=== PATIENT | male | born 1965 | race Caucasian/White ===

== ENCOUNTER → 2017-02-01 | Outpatient (CLI) | payer OTHER ==
[~2017-02-01] MED LIST: CHOL400T PO; GADAVIST IV PRN; MELO15TA4 PO; MULT-506 PO
--- NOTE | 2017-02-01 14:21 | DIAGNOSTIC IMAGING REPORT ---
BONY ORBITS 3 VIEWS CLINICAL HISTORY: MRI screening. FINDINGS: 3 views of the bony orbits are obtained. No prior studies are available for comparison at the time of dictation. There is no radiodense/metallic foreign body seen in the region of the bony orbits. The bony orbits are intact as visualized. The imaged paranasal sinuses and mastoid there are cells are clear. The visualized calvarium appears intact. IMPRESSION: There is no radiodense/metallic foreign body identified in the region of the bony orbits. Electronically signed by: Pedrito Urrutia M.D. 02/01/2017 2:19 PM Dictated Date/Time: 02/01/2017 2:18 PM
--- NOTE | 2017-02-01 15:22 | DIAGNOSTIC IMAGING REPORT ---
MRI OF THE BRAIN AND IACS WITHOUT A WITH CONTRAST CLINICAL HISTORY: Asymmetric hearing loss COMPARISON STUDY: No previous studies for comparison. TECHNIQUE: MRI of the brain was performed from the vertex to the skull base utilizing various T1 and T2 weighted sequences. Following the IV administration of 7.5 mL of Gadavist contrast, additional enhanced images were obtained. FINDINGS: Sagittal T1, axial diffusion, proton density and T2 weighted axial, coronal FLAIR, and pre and post axial T1-weighted images were acquired. These were supplemented with post gadolinium coronal T1 weighted images. 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 Axial diffusion-weighted images reveal no evidence of acute or subacute infarction. There is no evidence of ventricular dilatation. Proton density T2-weighted and FLAIR images reveal no significant intraparenchymal signal abnormalities. There are no abnormal flow voids. There is no evidence of pathologic enhancement. No cerebellopontine angle masses are visualized. The 7th and 8th nerve complexes appear normal bilaterally. There are inflammatory changes within the paranasal sinuses. IMPRESSION: 1. 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 No cerebellopontine angle masses identified. No MRI evidence of an acoustic neuroma 3. No evidence of acute or subacute infarction. Electronically signed by: Keshav Peterson M.D. 02/01/2017 3:20 PM Dictated Date/Time: 02/01/2017 3:17 PM
== END | disposition home or self-care (01) ==
LOC: C.MRIBC 13:53
DX: H90.41 Sensorineural hearing loss, unilateral, right ear, with unrestricted hearing on the contralateral side (principal); Z13.5 Encounter for screening for eye and ear disorders

== ENCOUNTER 2023-05-01 21:47 | Inpatient (IN) ==
[~2023-05-01 21:47] MED LIST changes: -CHOL400T PO; +ETOMIDATE 2 MG/ML 20 ML VIAL IV ONE; -GADAVIST IV PRN; -MELO15TA4 PO; -MULT-506 PO; +SUCCINYLCHOLINE CHLORIDE 20 MG/ML 10 ML VIAL IV ONE
[2023-05-01] MEDS ORDERED: SODIUM CHLORIDE 0.9% 1000ML 1,000 ML IV ONE (22:10)
--- NOTE | 2023-05-01 22:18 | Emergency Department Note ---
History of Present Illness General Chief complaint: Overdose (Intentional) Stated complaint: AMITRIPTYLINE OVERDOSE Time Seen by Provider: 05/01/23 21:59 History of Present Illness 57-year-old male presents emergency department with complaints of reportedly had taken fifteen 100 mg amitriptyline approximately 1 hour prior to arrival as a suicide attempt. Patient reportedly also had a gun to his face but did not pull the trigger. Patient states that he took 15 pills prior to arrival. EMS states that when they counted the pill bottle that was the correct amount left. There is no further history available to me from the patient due to alteration mental status Home Medications Medication Instructions Recorded Confirmed Type meloxicam 15 mg tablet 15 mg PO QAM 08/07/22 05/01/23 History ipratropium bromide 21 mcg (0.03 2 spray intranasal QAM #90 mL 09/21/22 05/01/23 Rx %) nasal spray pantoprazole 40 mg tablet,delayed 40 mg PO DAILY #90 tabs 04/04/23 05/01/23 Rx release amitriptyline 100 mg tablet 100 mg PO DAILY #90 tabs 04/16/23 05/01/23 Rx Allergies Allergy/AdvReac Type Severity Reaction Status Date / Time No Known Allergies Allergy Verified 02/13/23 14:21 Past Med/Surg History Medical History Cervical radiculopathy Cervical spinal stenosis (08/04/14) GERD (gastroesophageal reflux disease) Globus sensation Swallowing difficulty Surgical History History of arthroscopy of left knee History of arthroscopy of left shoulder History of arthroscopy of right knee History of colonoscopy History of lumbar spinal fusion History of wisdom tooth extraction S/P cervical spinal fusion normal ROM Family History Father Prostate cancer Other No family history of adverse response to anesthesia Denies family history of Ovarian cancer Diabetes Myocardial infarction Breast cancer Lung cancer Colorectal cancer Stroke Social History Smoking Status: Former smoker Second Hand Exposure: No; Do You Dip or Chew Tobacco: No; Hx Alcohol Use: Yes Alcohol type: beer Alcohol Intake Frequency: 4 or More x per/Week Hx Substance Use: No Preferred Language: [place]an Communication Ability: Effective Visual Impairment: No Limitations Hearing Ability: Normal Manager Creative Required: No Beliefs That Will Affect Care: None marital status: Current Living Situation: Spouse current occupational status: employed current occupation: Systems Admin How many Children do You have: 2 Feels Safe at Home: Yes Childhood Exposure to Second-Hand Smoke: No caffeine: Yes Dental Care, Regularly: Yes Physical Activity Frequency: Does not Exercise Seatbelt Use: always Sunscreen Use: No Assistive Devices: None Review of Systems Unobtainable due to reduced consciousness Physical Exam Vital Signs Vital Signs - 24 hr 05/01/23 21:57 05/01/23 21:48 05/01/23 21:48 Temperature 36.8 C Temperature Source Oral Pulse Rate 132 H 133 H Pulse Rate from SpO2 Sensor Pulse Rhythm Regular Pulse Strength Normal Respiratory Rate 20 Respiratory Effort / Characteristics Non-Labored Spontaneous Non-Labored Spontaneous Respiratory Depth Normal Normal Respiratory Pattern Regular Regular Blood Pressure 147/101 H Blood Pressure Mean 116 Blood Pressure Position Lying Pulse Oximetry 96 Oxygen Delivery Method Room Air Oxygen Flow Rate Fraction of Inspired Oxygen SaO2/FiO2 Ratio Sepsis Recent Fever Within 48 Hours No Sepsis New/Unexplained Change in Mental Status N/A Sepsis Action Taken by Nursing No Action Required End-Tidal CO2 05/01/23 21:50 05/01/23 22:47 05/01/23 23:14 Temperature Temperature Source Pulse Rate 115 H Pulse Rate from SpO2 Sensor Pulse Rhythm Pulse Strength Respiratory Rate 22 Respiratory Effort / Characteristics Respiratory Depth Respiratory Pattern Blood Pressure Blood Pressure Mean Blood Pressure Position Pulse Oximetry 97 98 99 Oxygen Delivery Method Room Air Mechanical Vent Oxygen Flow Rate 0 Fraction of Inspired Oxygen 40 40 SaO2/FiO2 Ratio 247 Sepsis Recent Fever Within 48 Hours Sepsis New/Unexplained Change in Mental Status Sepsis Action Taken by Nursing End-Tidal CO2 34 05/01/23 22:20 05/01/23 22:52 05/01/23 22:52 Temperature Temperature Source Pulse Rate 128 H 107 H Pulse Rate from SpO2 Sensor 127 H 108 H Pulse Rhythm Pulse Strength Respiratory Rate 28 H 14 Respiratory Effort / Characteristics Respiratory Depth Respiratory Pattern Blood Pressure 175/110 H Blood Pressure Mean 131 Blood Pressure Position Pulse Oximetry 95 99 Oxygen Delivery Method Mechanical Vent Oxygen Flow Rate Fraction of Inspired Oxygen 40 SaO2/FiO2 Ratio Sepsis Recent Fever Within 48 Hours Sepsis New/Unexplained Change in Mental Status Sepsis Action Taken by Nursing End-Tidal CO2 05/01/23 22:55 05/01/23 22:55 05/01/23 23:00 Temperature Temperature Source Pulse Rate 118 H Pulse Rate from SpO2 Sensor 118 H Pulse Rhythm Pulse Strength Respiratory Rate 20 Respiratory Effort / Characteristics Respiratory Depth Respiratory Pattern Blood Pressure 173/128 H 169/106 H Blood Pressure Mean 143 127 Blood Pressure Position Pulse Oximetry 99 Oxygen Delivery Method Mechanical Vent Oxygen Flow Rate Fraction of Inspired Oxygen 40 SaO2/FiO2 Ratio Sepsis Recent Fever Within 48 Hours Sepsis New/Unexplained Change in Mental Status Sepsis Action Taken by Nursing End-Tidal CO2 36 05/01/23 23:00 05/01/23 23:06 05/01/23 23:06 Temperature Temperature Source Pulse Rate 111 H 118 H Pulse Rate from SpO2 Sensor 112 H 118 H Pulse Rhythm Pulse Strength Respiratory Rate 18 24 Respiratory Effort / Characteristics Respiratory Depth Respiratory Pattern Blood Pressure 134/102 H Blood Pressure Mean 112 Blood Pressure Position Pulse Oximetry 99 100 Oxygen Delivery Method Mechanical Vent Mechanical Vent Oxygen Flow Rate Fraction of Inspired Oxygen 40 40 SaO2/FiO2 Ratio Sepsis Recent Fever Within 48 Hours Sepsis New/Unexplained Change in Mental Status Sepsis Action Taken by Nursing End-Tidal CO2 37 36 05/01/23 23:10 05/01/23 23:14 05/01/23 23:14 Temperature Temperature Source Pulse Rate 122 H 124 H Pulse Rate from SpO2 Sensor 122 H 125 H Pulse Rhythm Pulse Strength Respiratory Rate 23 24 Respiratory Effort / Characteristics Respiratory Depth Respiratory Pattern Blood Pressure 178/107 H Blood Pressure Mean 130 Blood Pressure Position Pulse Oximetry 99 100 Oxygen Delivery Method Mechanical Vent Mechanical Vent Oxygen Flow Rate Fraction of Inspired Oxygen 40 40 SaO2/FiO2 Ratio Sepsis Recent Fever Within 48 Hours Sepsis New/Unexplained Change in Mental Status Sepsis Action Taken by Nursing End-Tidal CO2 38 32 05/01/23 23:16 05/01/23 23:16 05/01/23 23:20 Temperature Temperature Source Pulse Rate 123 H Pulse Rate from SpO2 Sensor 123 H Pulse Rhythm Pulse Strength Respiratory Rate 22 Respiratory Effort / Characteristics Respiratory Depth Respiratory Pattern Blood Pressure 155/95 H 151/92 H Blood Pressure Mean 115 111 Blood Pressure Position Pulse Oximetry 100 Oxygen Delivery Method Mechanical Vent Oxygen Flow Rate Fraction of Inspired Oxygen 40 SaO2/FiO2 Ratio Sepsis Recent Fever Within 48 Hours Sepsis New/Unexplained Change in Mental Status Sepsis Action Taken by Nursing End-Tidal CO2 34 05/01/23 23:20 05/01/23 23:25 05/01/23 23:25 Temperature Temperature Source Pulse Rate 127 H 132 H Pulse Rate from SpO2 Sensor 126 H 130 H Pulse Rhythm Pulse Strength Respiratory Rate 30 H 21 Respiratory Effort / Characteristics Respiratory Depth Respiratory Pattern Blood Pressure 170/103 H Blood Pressure Mean 125 Blood Pressure Position Pulse Oximetry 99 98 Oxygen Delivery Method Mechanical Vent Mechanical Vent Oxygen Flow Rate Fraction of Inspired Oxygen 40 40 SaO2/FiO2 Ratio Sepsis Recent Fever Within 48 Hours Sepsis New/Unexplained Change in Mental Status Sepsis Action Taken by Nursing End-Tidal CO2 38 35 05/01/23 23:30 05/01/23 23:31 05/01/23 23:31 Temperature Temperature Source Pulse Rate 125 H 126 H Pulse Rate from SpO2 Sensor 126 H Pulse Rhythm Pulse Strength Respiratory Rate 23 21 Respiratory Effort / Characteristics Respiratory Depth Respiratory Pattern Blood Pressure 161/94 H Blood Pressure Mean 116 Blood Pressure Position Pulse Oximetry 100 Oxygen Delivery Method Mechanical Vent Oxygen Flow Rate Fraction of Inspired Oxygen 40 SaO2/FiO2 Ratio Sepsis Recent Fever Within 48 Hours Sepsis New/Unexplained Change in Mental Status Sepsis Action Taken by Nursing End-Tidal CO2 35 36 05/01/23 23:35 05/01/23 23:35 05/01/23 23:40 Temperature Temperature Source Pulse Rate 129 H 131 H Pulse Rate from SpO2 Sensor 126 H 130 H Pulse Rhythm Pulse Strength Respiratory Rate 25 H 20 Respiratory Effort / Characteristics Respiratory Depth Respiratory Pattern Blood Pressure 152/89 H Blood Pressure Mean 110 Blood Pressure Position Pulse Oximetry 98 98 Oxygen Delivery Method Mechanical Vent Mechanical Vent Oxygen Flow Rate Fraction of Inspired Oxygen 40 40 SaO2/FiO2 Ratio Sepsis Recent Fever Within 48 Hours Sepsis New/Unexplained Change in Mental Status Sepsis Action Taken by Nursing End-Tidal CO2 36 32 05/01/23 23:46 05/01/23 23:46 05/01/23 23:50 Temperature Temperature Source Pulse Rate 133 H 135 H Pulse Rate from SpO2 Sensor 133 H 132 H Pulse Rhythm Pulse Strength Respiratory Rate 26 H 28 H Respiratory Effort / Characteristics Respiratory Depth Respiratory Pattern Blood Pressure 148/92 H Blood Pressure Mean 110 Blood Pressure Position Pulse Oximetry 100 100 Oxygen Delivery Method Mechanical Vent Mechanical Vent Oxygen Flow Rate Fraction of Inspired Oxygen 40 40 SaO2/FiO2 Ratio Sepsis Recent Fever Within 48 Hours Sepsis New/Unexplained Change in Mental Status Sepsis Action Taken by Nursing End-Tidal CO2 34 33 05/01/23 23:51 05/01/23 23:51 Temperature Temperature Source Pulse Rate 134 H Pulse Rate from SpO2 Sensor 134 H Pulse Rhythm Pulse Strength Respiratory Rate 29 H Respiratory Effort / Characteristics Respiratory Depth Respiratory Pattern Blood Pressure 176/79 H Blood Pressure Mean 111 Blood Pressure Position Pulse Oximetry 100 Oxygen Delivery Method Mechanical Vent Oxygen Flow Rate Fraction of Inspired Oxygen 40 SaO2/FiO2 Ratio Sepsis Recent Fever Within 48 Hours Sepsis New/Unexplained Change in Mental Status Sepsis Action Taken by Nursing End-Tidal CO2 34 GENERAL: Patient is awake alert in no acute distress patient is resting comfortably and showing no signs of anxiety EYES: The conjunctivae are clear. The pupils are round and reactive. EARS, NOSE, MOUTH AND THROAT: The nose is without any evidence of any deformity. Mucous membranes are moist. Tongue is midline. NECK: The neck is nontender and supple. RESPIRATORY: Normal respiratory effort is noted there is no evidence of wheezing rhonchi or rales CARDIOVASCULAR: Tachycardic rate and rhythm noted there no murmurs rubs or gallops normal S1 normal S2. GASTROINTESTINAL: The abdomen is soft. Abdomen is nontender. BACK: Full range of motion MUSCULOSKELETAL/EXTREMITIES: There is no evidence of gross deformity full range of motion is noted in the hips and shoulders. SKIN: There is no obvious evidence of any rash. There are no petechiae, pallor or cyanosis noted. NEUROLOGIC: Patient is awake alert, mild dysarthria, but follows commands Psych reportedly suicidal ideation with intentional overdose Procedures Intubation Time out performed: Yes sedative: Etomidate Mg Given: 20 paralytic: Succinylcholine Mg Given: 120 Laryngoscope: Kristi ET Tube Size: 7.5 ET Tube Uncuffed: Yes Tube Secured Depth (cm): 22 Tube Secured Location: teeth Tube Placement Confirmation: visualized tube passing through cords, equal breath sounds bilaterally, no breath sounds over epigastrium and confirmation by capnometry Patient Tolerated Procedure: well Intubation Complications: none Additional Comments: Patient was intubated for severe agitation and alteration mental status Course Reevaluation(s) Reevaluation #1: Patient became extremely agitated was combative against the staff. Patient was placed in soft restraints with security at bedside. Patient was transferred from to [facility] for emergent intubation Time: 22:51 Reevaluation #2: Patient is currently intubated vital signs are stable. Patient is awaiting ICU admission Time: 00:12 Consultations Consultation #1: Case was discussed with the [facility] in [place] at 2212. They recommend repeat EKG every 4 hours give sodium bicarb if the QRS is greater than 120, give benzodiazepines for agitation and seizure activity, admit Time: :17 Consultation #2: Case was discussed with her family service caseworker for 302 petition Time: :17 Consultation #3: Case was discussed with the [facility] hospitalist for admission to the ICU Time: 23:09 Administered Medications Propofol (Diprivan) 1,000 mg in 100 mls @ 9.504 mls/hr IV .[id number] [facility]; Protocol Stop: 05/04/23 23:29 Last Admin: 05/01/23 22:53 Dose: 20 mcg/kg/min, 9.5 mls/hr Documented By: CONTROL SYSTEM MANAGER Co-signed By: TONIA Discontinued Medications Sodium Chloride (Nss 1000ml) 1,000 mls @ 999 mls/hr IV .[id number] ONE Stop: 05/01/23 23:10 Last Infusion: 05/01/23 23:00 Dose: 0 mls/hr Documented By: CONTROL SYSTEM MANAGER Admin: 05/01/23 22:18 Dose: 999 mls/hr Documented By: CONTROL SYSTEM MANAGER Miscellaneous (Rapid Sequence Induction Bag) Confirm Administered Dose 1 each N/A .STK-MED ONE Stop: 05/01/23 22:42 Last Admin: 05/01/23 22:45 Dose: 1 each Documented By: CONTROL SYSTEM MANAGER Propofol (Propofol Iv Emulsion 10 Mg/Ml 100 Ml Vial) Confirm Administered Dose 1,000 mg IV .STK-MED ONE Stop: 05/01/23 22:50 Last Admin: 05/01/23 22:53 Dose: 1,000 mg Documented By: CONTROL SYSTEM MANAGER Co-signed By: TONIA Critical Care Time Critical Care Time: Yes Total Critical Care Time: 60 I have personally spent greater than 60 minutes of critical care time in the direct management of this patient. This includes bedside care, interpretation of diagnostic studies, and testing, discussion with consultants, patient, and family members, and other required patient management activities. These minutes are in excess of all separately billable procedures. Medical Decision Making Medical Records Attestation: I reviewed the patient's medical records. Home Medications Current Medication List: was personally reviewed by me Laboratory Data Attestation: I reviewed the patient's lab results. 05/01/23 22:00 05/01/23 22:00 Lab Results 05/01/23 05/01/2323 Range/Units 21:58 22:00 22:00 WBC 9.99 (4.8-10.8) K/ul RBC 4.81 (4.70-6.10) M/uL Hgb 14.5 (14.0-18.0) g/dl POC Hgb (14.0-18.0) g/dl Hct 41.7 L (42.0-52.0) % POC Hct (42-52) % MCV 86.7 (80.0-100.0) fL MCH 30.1 (25.0-34.0) pg MCHC 34.8 (32.0-36.0) g/dL RDW Std Deviation 45.1 (36.4-46.3) fL RDW Coeff of Chrissy 14.3 (11.5-14.5) % Plt Count 241 (130-400) K/uL MPV 9.1 L (9.4-12.4) fL Immature Gran % (Auto) 0.6 % Neut % (Auto) 82.0 % Lymph % (Auto) 11.0 % Wilkes % (Auto) 5.8 % Eos % (Auto) 0.4 % Baso % (Auto) 0.2 % Neut # (Auto) 8.19 H (1.40-6.50) K/uL Lymph # (Auto) 1.10 L (1.2-3.4) K/uL Wilkes # (Auto) 0.58 (0.11-0.59) K/uL Eos # (Auto) 0.04 (0-0.50) K/uL Baso # (Auto) 0.02 (0-0.2) K/uL Immature Gran # (Auto) 0.06 (0.01-0.20) K/uL PT 11.3 (9.0-12.0) Seconds INR 1.0 (0.9-1.1) POC pH (7.35-7.45) POC pCO2 (35-46) mmHg POC pO2 (80-95) mmHg POC HCO3 (19-24) niyah/L POC Total CO2 (24-31) mmol/L POC Base Excess (-9-1.8) niyah/L POC ABG O2 Sat (90-95) % POC Sodium (135-144) mmol/L Sodium (136-145) mmol/L POC Potassium (3.3-5.0) mmol/L Potassium (3.5-5.1) mmol/L Chloride (98-107) mmol/L Carbon Dioxide (21-32) mmol/L Anion Gap (3-11) BUN (6-23) mg/dl Creatinine (0.6-1.4) mg/dl Est Cr Clr Drug Dosing ml/min Est GFR ( Amer) ml/min Est GFR (Non-Af Amer) ml/min BUN/Creatinine Ratio (10-20) Glucose (70-99(Fasting)) mg/dl POC Glucose 118 H (70-99) mg/dl Calcium (8.6-10.3) mg/dl Magnesium (1.7-2.4) mg/dl Total Bilirubin (0.2-1.0) mg/dl AST (13-39) U/L ALT (7-52) U/L Alkaline Phosphatase (34-104) U/L Troponin I High Sens (0-20) pg/ml Total Protein (6.0-8.3) gm/dl Albumin (3.4-5.0) gm/dl Globulin (2.5-4.0) gm/dl Albumin/Globulin Ratio (0.9-2) Salicylates (3.0-30) mg/dl Urine Opiates Screen (Neg) Ur Methadone, Qual (Neg) Acetaminophen (10-30) ug/ml Urine Barbiturates (Neg) Ur Phencyclidine (PCP) (Neg) U Amphetamin/Meth Scrn (Neg) MDMA (Ecstasy) Screen (Neg) U Benzodiazepines Scrn (Neg) Ur Cocaine Metabolite (Neg) U Marijuana (THC) Screen (Neg) Ethyl Alcohol mg/dL (<10.0) mg/dl SARS-CoV-2, RNA, NAAT (NEGATIVE) 05/01/23 05/01/23 05/01/23 Range/Units 22:00 22:00 22:00 WBC (4.8-10.8) K/ul RBC (4.70-6.10) M/uL Hgb (14.0-18.0) g/dl POC Hgb (14.0-18.0) g/dl Hct (42.0-52.0) % POC Hct (42-52) % MCV (80.0-100.0) fL MCH (25.0-34.0) pg MCHC (32.0-36.0) g/dL RDW Std Deviation (36.4-46.3) fL RDW Coeff of Chrissy (11.5-14.5) % Plt Count (130-400) K/uL MPV (9.4-12.4) fL Immature Gran % (Auto) % Neut % (Auto) % Lymph % (Auto) % Wilkes % (Auto) % Eos % (Auto) % Baso % (Auto) % Neut # (Auto) (1.40-6.50) K/uL Lymph # (Auto) (1.2-3.4) K/uL Wilkes # (Auto) (0.11-0.59) K/uL Eos # (Auto) (0-0.50) K/uL Baso # (Auto) (0-0.2) K/uL Immature Gran # (Auto) (0.01-0.20) K/uL PT (9.0-12.0) Seconds INR (0.9-1.1) POC pH (7.35-7.45) POC pCO2 (35-46) mmHg POC pO2 (80-95) mmHg POC HCO3 (19-24) niyah/L POC Total CO2 (24-31) mmol/L POC Base Excess (-9-1.8) niyah/L POC ABG O2 Sat (90-95) % POC Sodium (135-144) mmol/L Sodium 141 (136-145) mmol/L POC Potassium (3.3-5.0) mmol/L Potassium 3.4 L (3.5-5.1) mmol/L Chloride 107 (98-107) mmol/L Carbon Dioxide 23 (21-32) mmol/L Anion Gap 11 (3-11) BUN 22 (6-23) mg/dl Creatinine 1.28 (0.6-1.4) mg/dl Est Cr Clr Drug Dosing 65.0 ml/min Est GFR ( Amer) 71.0 ml/min Est GFR (Non-Af Amer) 61.3 ml/min BUN/Creatinine Ratio 17.2 (10-20) Glucose 115 H (70-99(Fasting)) mg/dl POC Glucose (70-99) mg/dl Calcium 9.8 (8.6-10.3) mg/dl Magnesium 2.0 (1.7-2.4) mg/dl Total Bilirubin 0.5 (0.2-1.0) mg/dl AST 29 (13-39) U/L ALT 34 (7-52) U/L Alkaline Phosphatase 62 (34-104) U/L Troponin I High Sens 3.9 (0-20) pg/ml Total Protein 7.1 (6.0-8.3) gm/dl Albumin 4.8 (3.4-5.0) gm/dl Globulin 2.3 L (2.5-4.0) gm/dl Albumin/Globulin Ratio 2.1 H (0.9-2) Salicylates < 3.0 L (3.0-30) mg/dl Urine Opiates Screen (Neg) Ur Methadone, Qual (Neg) Acetaminophen < 3 L (10-30) ug/ml Urine Barbiturates (Neg) Ur Phencyclidine (PCP) (Neg) U Amphetamin/Meth Scrn (Neg) MDMA (Ecstasy) Screen (Neg) U Benzodiazepines Scrn (Neg) Ur Cocaine Metabolite (Neg) U Marijuana (THC) Screen (Neg) Ethyl Alcohol mg/dL < 10.0 (<10.0) mg/dl SARS-CoV-2, RNA, NAAT (NEGATIVE) 05/01/23 05/01/23 05/01/23 Range/Units 23:05 23:23 Unknown WBC (4.8-10.8) K/ul RBC (4.70-6.10) M/uL Hgb (14.0-18.0) g/dl POC Hgb 10.9 L (14.0-18.0) g/dl Hct (42.0-52.0) % POC Hct 32 L (42-52) % MCV (80.0-100.0) fL MCH (25.0-34.0) pg MCHC (32.0-36.0) g/dL RDW Std Deviation (36.4-46.3) fL RDW Coeff of Chrissy (11.5-14.5) % Plt Count (130-400) K/uL MPV (9.4-12.4) fL Immature Gran % (Auto) % Neut % (Auto) % Lymph % (Auto) % Wilkes % (Auto) % Eos % (Auto) % Baso % (Auto) % Neut # (Auto) (1.40-6.50) K/uL Lymph # (Auto) (1.2-3.4) K/uL Wilkes # (Auto) (0.11-0.59) K/uL Eos # (Auto) (0-0.50) K/uL Baso # (Auto) (0-0.2) K/uL Immature Gran # (Auto) (0.01-0.20) K/uL PT (9.0-12.0) Seconds INR (0.9-1.1) POC pH 7.35 (7.35-7.45) POC pCO2 40 (35-46) mmHg POC pO2 61 L (80-95) mmHg POC HCO3 22 (19-24) niyah/L POC Total CO2 23 L (24-31) mmol/L POC Base Excess -4.0 (-9-1.8) niyah/L POC ABG O2 Sat 90.0 (90-95) % POC Sodium 141 (135-144) mmol/L Sodium (136-145) mmol/L POC Potassium 3.5 (3.3-5.0) mmol/L Potassium (3.5-5.1) mmol/L Chloride (98-107) mmol/L Carbon Dioxide (21-32) mmol/L Anion Gap (3-11) BUN (6-23) mg/dl Creatinine (0.6-1.4) mg/dl Est Cr Clr Drug Dosing ml/min Est GFR ( Amer) ml/min Est GFR (Non-Af Amer) ml/min BUN/Creatinine Ratio (10-20) Glucose (70-99(Fasting)) mg/dl POC Glucose (70-99) mg/dl Calcium (8.6-10.3) mg/dl Magnesium (1.7-2.4) mg/dl Total Bilirubin (0.2-1.0) mg/dl AST (13-39) U/L ALT (7-52) U/L Alkaline Phosphatase (34-104) U/L Troponin I High Sens (0-20) pg/ml Total Protein (6.0-8.3) gm/dl Albumin (3.4-5.0) gm/dl Globulin (2.5-4.0) gm/dl Albumin/Globulin Ratio (0.9-2) Salicylates (3.0-30) mg/dl Urine Opiates Screen Neg (Neg) Ur Methadone, Qual Neg (Neg) Acetaminophen (10-30) ug/ml Urine Barbiturates Neg (Neg) Ur Phencyclidine (PCP) Neg (Neg) U Amphetamin/Meth Scrn Neg (Neg) MDMA (Ecstasy) Screen Neg (Neg) U Benzodiazepines Scrn Neg (Neg) Ur Cocaine Metabolite Neg (Neg) U Marijuana (THC) Screen Pos H (Neg) Ethyl Alcohol mg/dL (<10.0) mg/dl SARS-CoV-2, RNA, NAAT NEGATIVE (NEGATIVE) Imaging Data Attestation: I personally reviewed and interpreted this imaging study as follows: ECG Data Attestation: I personally reviewed and interpreted this ECG as follows: Additional Comments: EKG interpreted by me sinus tachycardia rate of 133 is 100 QTc is [address]-T change Repeat EKG at 2250, sinus tachycardia rate of 105 QRS is 114 the QTc is 481 and there is no obvious ST segment elevation or depression Telemetry was ordered by me, interpreted as sinus tachycardia rate of 125 MDM Narrative Medical decision making differential diagnosis includes intentional TCA overdose, suicidal ideation, metabolic derangement, cardiac dysrhythmia, polysubstance abuse Plan is to check labs, EKG, give IV fluids, monitor due to TCA overdose Impression & Plan TCA (tricyclic antidepressant) overdose of undetermined intent, Altered mental status, Suicide attempt by multiple drug overdose Discharge Plan Visit Data Chief Complaint: Overdose (Intentional) Stated Complaint: AMITRIPTYLINE OVERDOSE ED Provider: Ry Marquez Discharge Problem: TCA (tricyclic antidepressant) overdose of undetermined intent, Altered mental status, Suicide attempt by multiple drug overdose Patient Disposition: Admitted As Inpatient Forms Stand Alone Forms: [facility], Suicide Prevention Resources Prescriptions Prescriptions: No Action ipratropium bromide 21 mcg (0.03 %) spray,non-aerosol 2 spray intranasal QAM Qty: 90 2RF Rx Instructions: administer into each nostril pantoprazole 40 mg tablet,delayed release (DR/EC) 40 mg PO DAILY Qty: 90 0RF Rx Instructions: 1 tab 30-min prior to 1st meal. amitriptyline 100 mg tablet 100 mg PO DAILY Qty: 90 3RF Rx Instructions: filled 04/16/23 for 30 days meloxicam 15 mg Tablet 15 mg PO QAM Rx Instructions: filled 04/05/23 for 30 days Referrals Referrals: Kun Perla DO [Primary Care Provider] -
[2023-05-01 22:38] LABS: Basophils # (auto) 0.02 K/uL (0-0.2); Basophils % (auto) 0.2 %; Eosinophils # (auto) 0.04 K/uL (0-0.50); Eosinophils % (auto) 0.4 %; Hematocrit (blood only) 41.7 % (42.0-52.0); Hemoglobin 14.5 g/dl (14.0-18.0); Immature Granulocytes # (auto) 0.06 K/uL (0.01-0.20); Immature Granulocytes % (auto) 0.6 %; Mean Corpuscular Hemoglobin 30.1 pg (25.0-34.0); Mean Corpuscular Hgb Conc 34.8 g/dL (32.0-36.0); Mean Corpuscular Volume 86.7 fL (80.0-100.0); Mean Platelet Volume 9.1 fL (9.4-12.4); Monocytes # (auto) 0.58 K/uL (0.11-0.59); Monocytes % (auto) 5.8 %; Neutrophils # (auto) 8.19 K/uL (1.40-6.50); Platelet Count 241 K/uL (130-400); RDW Coefficient of Variation 14.3 % (11.5-14.5); RDW Standard Deviation 45.1 fL (36.4-46.3); Red Blood Count 4.81 M/uL (4.70-6.10); White Blood Count 9.99 K/ul (4.8-10.8)
[2023-05-01] MEDS ORDERED: RAPID SEQUENCE INDUCTION BAG ONE (22:41)
[2023-05-01 22:49] LABS: Acetaminophen < 3 ug/ml (10-30); Salicylate < 3.0 mg/dl (3.0-30)
[2023-05-01] MEDS ORDERED: PROPOFOL IV EMULSION 10 MG/ML 100 ML VIAL IV ONE (22:49)
[2023-05-01] MEDS: propofoL 1,000 MG/100 ML VIAL IV SCH (22:53)
[2023-05-01 22:56] LABS: Albumin Globulin Ratio 2.1 (0.9-2); Albumin Level 4.8 gm/dl (3.4-5.0); BUN Creatinine Ratio 17.2 (10-20); Bilirubin,Total 0.5 mg/dl (0.2-1.0); Calcium 9.8 mg/dl (8.6-10.3); Est GFR (Non-African American) 61.3 ml/min; Globulin 2.3 gm/dl (2.5-4.0); Potassium 3.4 mmol/L (3.5-5.1); Total Protein 7.1 gm/dl (6.0-8.3)
[2023-05-01 23:01] LABS: Troponin I High Sensitivity 3.9 pg/ml (0-20)
[2023-05-01 23:04] LABS: Prothrombin Time 11.3 Seconds (9.0-12.0)
[2023-05-01] MEDS ORDERED: PROPOFOL BOLUS FROM BAG IV PRN (23:23)
[2023-05-01] MEDS ORDERED: STAT IV Infusion **Titration per Protocol STA (23:23)
[2023-05-01 23:39] LABS: iSTAT Arterial Blood Gas HCO3 22 meg/L (19-24); iSTAT Arterial Blood Gas pCO2 40 mmHg (35-46); iSTAT Arterial Blood Gas pH 7.35 (7.35-7.45); iSTAT Arterial Blood Gas pO2 61 mmHg (80-95); iSTAT Carbon Dioxide 23 mmol/L (24-31); iSTAT Hematocrit 32 % (42-52); iSTAT Hemoglobin 10.9 g/dl (14.0-18.0); iSTAT Potassium 3.5 mmol/L (3.3-5.0); iSTAT Sodium 141 mmol/L (135-144)
--- NOTE | 2023-05-01 23:43 | History & Physical Report ---
Date of Service May 01, 2023 Assessment & Plan (1) Intentional overdose of tricyclic antidepressant: (2) Altered mental status: (3) Suicide attempt by multiple drug overdose: (4) GERD (gastroesophageal reflux disease): (5) Depression: (6) Endotracheally intubated: Plan Intentional overdose of tricyclic antidepressants/suicide attempt/agitation/intubated for airway protection- Admission to the ICU Consult pressure welder team for management Follow serial CBC with differential, BMP, magnesium, LFTs, phosphorus and ABG Patient reports taking fifteen 100 mg amitriptyline tablets, which was verified by EMS with a pill count Poison control advises EKG every 4 hours, with administration of sodium bicarbonate if QRS becomes greater than 120 Monitor in ED with no ectopy and normal QRS Continue propofol for sedation GERD- Change pantoprazole from 40 mg orally daily to IV Mild dehydration/hypokalemia- Placed on NSS + KCl 20 mEq at 100 mils per hour DVT prophylaxis SCDs plus Lovenox 1 mg/kg subcu daily History of Present Illness Chief Complaint: The patient presented to the emergency department reporting that he had taken 15 of his 100 mg amitriptyline pills about 1 hour prior to arrival as an i ntentional overdose and suicide attempt. Primary Care Provider: Kun Perla DO The patient is a 57-year-old male with a past medical history including suicide attempt by multiple drug overdose, right shoulder impingement syndrome, history of lumbar spine sacral spine surgery, history of arthroscopic left shoulder surgery, cervical spine stenosis and radiculopathy, depression, globus sensation, swallowing difficulty and GERD. He presented to the emergency department stating that he had taken 15 of his 100 mg amitriptyline pills about 1 hour prior to arrival in a suicide attempt. He was initially conversant with the ED, however, he became agitated, and was intubated while in the ED. He remained intubated and sedated during my complete assessment, and his HPI and ROS are obtained by record review and discussion with emergency department staff. His case was discussed with ICU staff, and arranges were made for patient to be admitted to the ICU Allergies Allergy/AdvReac Type Severity Reaction Status Date / Time No Known Allergies Allergy Verified 02/13/23 14:21 Home Medications Medication Instructions Recorded Confirmed Type meloxicam 15 mg tablet 15 mg PO QAM 08/07/22 05/01/23 History ipratropium bromide 21 mcg (0.03 2 spray intranasal QAM #90 mL 09/21/22 05/01/23 Rx %) nasal spray pantoprazole 40 mg tablet,delayed 40 mg PO DAILY #90 tabs 04/04/23 05/01/23 Rx release amitriptyline 100 mg tablet 100 mg PO DAILY #90 tabs 04/16/23 05/01/23 Rx Past Med/Surg History Medical History (Updated 05/02/23 @ 05:04 by Srinivasan Rodriges MD) Cervical radiculopathy Cervical spinal stenosis (08/04/14) Depression GERD (gastroesophageal reflux disease) Globus sensation Swallowing difficulty Surgical History History of arthroscopy of left knee History of arthroscopy of left shoulder History of arthroscopy of right knee History of colonoscopy History of lumbar spinal fusion History of wisdom tooth extraction S/P cervical spinal fusion normal ROM Family History Father Prostate cancer Other No family history of adverse response to anesthesia Denies family history of Ovarian cancer Diabetes Myocardial infarction Breast cancer Lung cancer Colorectal cancer Stroke Social History Smoking Status: Former smoker Smoking End Date: 5 years ago; Second Hand Exposure: No; Do You Dip or Chew Tobacco: No; Hx Alcohol Use: Yes Alcohol type: beer Alcohol Intake Frequency: 4 or More x per/Week Hx Substance Use: Yes Last Used Substance: Unknown Preferred Language: [place] Communication Ability: Impaired Communication Ability Comment: Patient is intubated and sedated Visual Impairment: No Limitations Hearing Ability: Normal Executive Manager Required: No Beliefs That Will Affect Care: None marital status: Current Living Situation: Spouse and Family current occupational status: employed current occupation: Animal Tech How many Children do You have: 2 Other Information That Helps Us Care for You: No Feels Safe at Home: Yes Childhood Exposure to Second-Hand Smoke: No caffeine: Yes Dental Care, Regularly: Yes Physical Activity Frequency: Does not Exercise Seatbelt Use: always Sunscreen Use: No Assistive Devices: None Review of Systems Review of Systems: Unable to perform ROS due to intubated and sedated status Physical Exam Physical Exam: The patient is sedated and intubated, well developed and well nourished HEENT--PERRL, EOMI, mucous membranes and oropharynx dry. Neck--supple. No JVD. No bruits. Thyroid normal, trachea midline, no adenopathy. Heart--normal S1 and S2. No murmurs, rubs or gallops. Lungs--few coarse breath sounds bilaterally. Abdomen--normal bowel sounds and soft. Nondistended Extremities--no cyanosis or clubbing. No edema. There are good distal pulses b/l. Dermatologic--no acute findings Neurologic--limited exam, sedated sedated on propofol Rheumatologic--limited exam Psychiatric--reportedly became agitated and aggressive towards staff, and then was sedated and intubated Results & Data Results & Data Vital Signs (Past 12 Hours) Vital Signs Temp Pulse Resp BP Pulse Ox O2 Del Method O2 Flow Rate 05/01/23 23:06 134/102 H 05/01/23 23:06 118 H 24 100 Mechanical Vent 05/01/23 23:00 111 H 18 99 Mechanical Vent 05/01/23 23:00 169/106 H 05/01/23 22:55 173/128 H 05/01/23 22:55 118 H 20 99 Mechanical Vent 05/01/23 22:52 107 H 14 99 Mechanical Vent 05/01/23 22:52 175/110 H 05/01/23 22:20 128 H 28 H 95 05/01/23 23:14 99 Mechanical Vent 05/01/23 22:47 115 H 22 98 05/01/23 21:50 97 Room Air 0 05/01/23 21:48 36.8 C 133 H 20 147/101 H 96 Room Air 05/01/23 21:57 132 H FiO2 05/01/23 23:06 05/01/23 23:06 40 05/01/23 23:00 40 05/01/23 23:00 05/01/23 22:55 05/01/23 22:55 40 05/01/23 22:52 40 05/01/23 22:52 05/01/23 22:20 05/01/23 23:14 40 05/01/23 22:47 40 05/01/23 21:50 05/01/23 21:48 05/01/23 21:57 Laboratory Results Laboratory Results WBC 9.99 K/ul (4.8-10.8) 05/01/23 22:00 RBC 4.81 M/uL (4.70-6.10) 05/01/23 22:00 Hgb 14.5 g/dl (14.0-18.0) 05/01/23 22:00 POC Hgb 10.9 g/dl (14.0-18.0) L 05/01/23 23:23 Hct 41.7 % (42.0-52.0) L 05/01/23 22:00 POC Hct 32 % (42-52) L 05/01/23 23:23 MCV 86.7 fL (80.0-100.0) 05/01/23 22:00 MCH 30.1 pg (25.0-34.0) 05/01/23 22:00 MCHC 34.8 g/dL (32.0-36.0) 05/01/23 22:00 RDW Std Deviation 45.1 fL (36.4-46.3) 05/01/23 22:00 RDW Coeff of Chrissy 14.3 % (11.5-14.5) 05/01/23 22:00 Plt Count 241 K/uL (130-400) 05/01/23 22:00 MPV 9.1 fL (9.4-12.4) L 05/01/23 22:00 Immature Gran % (Auto) 0.6 % 05/01/23 22:00 Neut % (Auto) 82.0 % 05/01/23 22:00 Lymph % (Auto) 11.0 % 05/01/23 22:00 King[place]isher % (Auto) 5.8 % 05/01/23 22:00 Eos % (Auto) 0.4 % 05/01/23 22:00 Baso % (Auto) 0.2 % 05/01/23 22:00 Neut # (Auto) 8.19 K/uL (1.40-6.50) H 05/01/23 22:00 Lymph # (Auto) 1.10 K/uL (1.2-3.4) L 05/01/23 22:00 Kingfisher # (Auto) 0.58 K/uL (0.11-0.59) 05/01/23 22:00 Eos # (Auto) 0.04 K/uL (0-0.50) 05/01/23 22:00 Baso # (Auto) 0.02 K/uL (0-0.2) 05/01/23 22:00 Immature Gran # (Auto) 0.06 K/uL (0.01-0.20) 05/01/23 22:00 PT 11.3 Seconds (9.0-12.0) 05/01/23 22:00 INR 1.0 (0.9-1.1) 05/01/23 22:00 POC pH 7.35 (7.35-7.45) 05/01/23 23:23 POC pCO2 40 mmHg (35-46) 05/01/23 23:23 POC pO2 61 mmHg (80-95) L 05/01/23 23:23 POC HCO3 22 niyah/L (19-24) 05/01/23 23:23 POC Total CO2 23 mmol/L (24-31) L 05/01/23 23:23 POC Base Excess -4.0 niyah/L (-9-1.8) 05/01/23 23:23 POC ABG O2 Sat 90.0 % (90-95) 05/01/23 23:23 POC Sodium 141 mmol/L (135-144) 05/01/23 23:23 Sodium 141 mmol/L (136-145) 05/02/23 02:04 POC Potassium 3.5 mmol/L (3.3-5.0) 05/01/23 23:23 Potassium 4.1 mmol/L (3.5-5.1) D 05/02/23 02:04 Chloride 112 mmol/L (98-107) H 05/02/23 02:04 Carbon Dioxide 22 mmol/L (21-32) 05/02/23 02:04 Anion Gap 7 (3-11) 05/02/23 02:04 BUN 19 mg/dl (6-23) 05/02/23 02:04 Creatinine 1.15 mg/dl (0.6-1.4) 05/02/23 02:04 Est Cr Clr Drug Dosing 72.3 ml/min 05/02/23 02:04 Est GFR ( Amer) 80.9 ml/min 05/02/23 02:04 Est GFR (Non-Af Amer) 69.8 ml/min 05/02/23 02:04 BUN/Creatinine Ratio 16.5 (10-20) 05/02/23 02:04 Glucose 145 mg/dl (70-99(Fasting)) H 05/02/23 02:04 POC Glucose 118 mg/dl (70-99) H 05/01/23 21:58 Calcium 8.2 mg/dl (8.6-10.3) L 05/02/23 02:04 Magnesium 2.0 mg/dl (1.7-2.4) 05/01/23 22:00 Total Bilirubin 0.5 mg/dl (0.2-1.0) 05/01/23 22:00 AST 29 U/L (13-39) 05/01/23 22:00 ALT 34 U/L (7-52) 05/01/23 22:00 Alkaline Phosphatase 62 U/L (34-104) 05/01/23 22:00 Troponin I High Sens 7.4 pg/ml (0-20) 05/02/23 02:04 Total Protein 7.1 gm/dl (6.0-8.3) 05/01/23 22:00 Albumin 4.8 gm/dl (3.4-5.0) 05/01/23 22:00 Globulin 2.3 gm/dl (2.5-4.0) L 05/01/23 22:00 Albumin/Globulin Ratio 2.1 (0.9-2) H 05/01/23 22:00 Salicylates < 3.0 mg/dl (3.0-30) L 05/01/23 22:00 Urine Opiates Screen Neg (Neg) 05/01/23 23:05 Ur Methadone, Qual Neg (Neg) 05/01/23 23:05 Acetaminophen < 3 ug/ml (10-30) L 05/01/23 22:00 Urine Barbiturates Neg (Neg) 05/01/23 23:05 Ur Phencyclidine (PCP) Neg (Neg) 05/01/23 23:05 U Amphetamin/Meth Scrn Neg (Neg) 05/01/23 23:05 MDMA (Ecstasy) Screen Neg (Neg) 05/01/23 23:05 U Benzodiazepines Scrn Neg (Neg) 05/01/23 23:05 Ur Cocaine Metabolite Neg (Neg) 07/18/23 23:05 U Marijuana (THC) Screen Pos (Neg) H 05/01/23 23:05 Ethyl Alcohol mg/dL < 10.0 mg/dl (<10.0) 05/01/23 22:00 SARS-CoV-2, RNA, NAAT NEGATIVE (NEGATIVE) 05/01/23 Unknown Code Status & VTE Plan Code Status Full code VTE Prophylaxis Plan VTE Prophylaxis will be ordered: Yes PG Care Time/CCT Total # of Minutes Spent Total Time Spent with Patient: Total time spent is greater than 50% in coordination of care (as documented) at patient's floor/unit and/or counseling patient: 40 minutes Coding Level of Care Code 97159 INT INP/OBS CARE 3/75MIN Diagnoses Intentional overdose of tricyclic antidepressant T43.012A Altered mental status R41.82 Suicide attempt by multiple drug overdose T50.912A GERD (gastroesophageal reflux disease) K21.9 Depression F32.A Endotracheally intubated Z97.8
[2023-05-02 00:04] LABS: Amphetamines+Metham, Urine Neg (Neg); Barbiturates, Urine Neg (Neg); Benzodiazepine, Urine Neg (Neg); Cocaine, Urine Neg (Neg); MDMA (Ecstacy), Urine Neg (Neg); Methadone, Urine Neg (Neg); Opiate, Urine Neg (Neg); Phencyclidine, Urine Neg (Neg)
[2023-05-02] MEDS ORDERED: ACETAMINOPHEN 1000 MG/100 ML IV IV PRN (01:11)
[2023-05-02] MEDS ORDERED: ALBUT/IPRATROP 3MG/0.5MG NEB 3 ML VIAL INH PRN (01:11)
[2023-05-02] MEDS ORDERED: NSS + 20MEQ KCL 20 MEQ/1,000 ML BAG IV SCH (01:30)
[2023-05-02] MEDS: propofoL 1,000 MG/100 ML VIAL IV SCH ×3 (01:42→07:35)
--- NOTE | 2023-05-02 02:41 | Critical Care Consultation ---
Date of Consultation May 02, 2023 Assessment & Plan (1) Suicide attempt by multiple drug overdose: Reason Critically Ill: 57-year-old male presents to the ICU following intentional drug overdose with amitriptyline. Intubated in the emergency department following altered mental status and combative behavior. Now presents to the ICU mechanically ventilated. Neuro - Intentional drug overdose/suicide attempt Patient reported to have held a gun to his head threatening suicide and then took fifteen 100 mg amitriptyline's from his own prescription. -Was noted to be altered mental status on arrival to the emergency department, And was intubated - Poison control consulted. Recommended every 4 hour EKGs and addition of bicarb if QRS above 120 - UDS positive for marijuana. EtOH negative. Acetaminophen and salicylates negative - Currently no 302 on patient. reportedly refused to sign - does report prior history of suicide attempt and depression with suicidal ideations - Consult psych once medically stable Cardiac - Tachycardia Likely secondary to TCA overdose/Agitation. QTc and QRS within normal limits on EKG. Continuous monitoring on telemetry for now. Hemodynamically stable and troponin negative Respiratory - Mechanically ventilated Currently on AC/VC 16/450/8/30 5% - Chest x-ray Unremarkable - Continuous monitoring on end-tidal CO2 and pulse ox. - Plan to extubate once patient is able to metabolize amitriptyline from overdose GI - N.p.o. GERDPPI RENAL/LYTES - Creatinine within normal limits monitor routine BMPs and replete electrolytes as indicated Continue with IV fluid resuscitation - Foleystrict I's and O ENDO - No history of diabetes or thyroid disease. ICU hyperglycemic protocol HEME - H&H stable, monitor routine CBC ID - No indication for infectious process at this time LINES/IV ACCESS - Peripheral IVs DVT PROPHYLAXIS - SCDs I have personally spent 40 minutes of critical care time in the direct management of this patient. This is a life/limb threatening event. This includes time spent evaluating patient, direct bedside care, chart review, placing orders, interpretation of diagnostic studies, discussion with consultants, patient, and family members, as well as other required patient management activities. This time is exclusive of all separately billable procedures, and teaching time and separate from and in addition to any other critical care service time. Thank you for allowing us to participate in the care of this patient. Please refer to my attending physician's documentation for any further recommendations. (2) Altered mental status: Supervising Physician Co-Signing Physician Notes Patient seen and examined. EMR reviewed. Discussed with bedside critical care nurse. No family available. Discussed on multidisciplinary rounds. The patient's remained hemodynamically stable. He is QT remains normal. He is on minimal vent settings. We will attempt to wean propofol and pursue trial of ventilator liberation. He will require behavioral health and likely confinement for mental health issues once medically cleared. Additional 35 minutes was spent evaluating managing and coordinating care for this patient History of Present Illness Attending Physician: Srinivasan Rodriges MD History of Present Illness Patient is a 57-year-old male with past medical history of depression, previous suicide attempt, arthritis, and GERD who presented to the emergency department after intentional drug overdose and suicide attempt. Patient reportedly had put a gun to his face threatening to take his life and then took approximately 15 pills of his prescribed amitriptyline. This took place approximately an hour prior to arrival to the ED. In the emergency department Patient was noted to be altered mental status and became combative, and was intubated. Patient now transferred to the ICU for further management at this time. UDS positive for marijuana, EtOH negative. Acetaminophen and salicylates negative. Poison control was notified and recommended every 4 hour EKGs along with serial labs. Recommended adding bicarb drip if QRS greater than 120. Currently QTc and QRS are within normal limits. We will continue to monitor closely and continue with supportive care in the ICU. Patient will need psych consult once medically stable and extubated. Allergies Allergy/AdvReac Type Severity Reaction Status Date / Time No Known Allergies Allergy Verified 02/13/23 14:21 Home Medications Medication Instructions Recorded Confirmed Type meloxicam 15 mg tablet 15 mg PO QAM 08/07/22 05/01/23 History ipratropium bromide 21 mcg (0.03 2 spray intranasal QAM #90 mL 09/21/22 05/01/23 Rx %) nasal spray pantoprazole 40 mg tablet,delayed 40 mg PO DAILY #90 tabs 04/04/23 05/01/23 Rx release amitriptyline 100 mg tablet 100 mg PO DAILY #90 tabs 04/16/23 05/01/23 Rx Patient History Medical History (Updated 05/02/23 @ 05:04 by Srinivasan Rodriges MD) Cervical radiculopathy Cervical spinal stenosis (08/04/14) Depression GERD (gastroesophageal reflux disease) Globus sensation Swallowing difficulty Surgical History History of arthroscopy of left knee History of arthroscopy of left shoulder History of arthroscopy of right knee History of colonoscopy History of lumbar spinal fusion History of wisdom tooth extraction S/P cervical spinal fusion normal ROM Family History Father Prostate cancer Other No family history of adverse response to anesthesia Denies family history of Ovarian cancer Diabetes Myocardial infarction Breast cancer Lung cancer Colorectal cancer Stroke Social History Smoking Status: Former smoker Smoking End Date: 5 years ago; Second Hand Exposure: No; Do You Dip or Chew Tobacco: No; Hx Alcohol Use: Yes Alcohol type: beer Alcohol Intake Frequency: 4 or More x per/Week Hx Substance Use: Yes Last Used Substance: Unknown Preferred Language: Turkmen Communication Ability: Impaired Communication Ability Comment: Patient is intubated and sedated Visual Impairment: No Limitations Hearing Ability: Normal Harvest Field Ticketer Required: No Beliefs That Will Affect Care: None marital status: Current Living Situation: Spouse and Family current occupational status: employed current occupation: Mail Clerk How many Children do You have: 2 Other Information That Helps Us Care for You: No Feels Safe at Home: Yes Childhood Exposure to Second-Hand Smoke: No caffeine: Yes Dental Care, Regularly: Yes Physical Activity Frequency: Does not Exercise Seatbelt Use: always Sunscreen Use: No Assistive Devices: None Review of Systems Review of Systems: Unobtainable due to cognitive status and Unobtainable due to endotracheal tube Physical Exam Constitutional: + mechanically ventilated; no acute distress Eyes: PERRL, conjunctivae normal, anicteric sclerae ENMT: external ear and nose normal, oropharynx normal Neck: trachea midline, no thyromegaly Respiratory: normal respiratory effort, lungs clear to auscultation Cardiovascular: RRR, no murmur, no edema Rate/Rhythm: regular rhythm and + tachycardic Heart Sounds: normal S1 and normal S2; no murmur Vessels: no JVD Gastrointestinal (Abdomen): normal bowel sounds, soft, nontender, no hepatosplenomegaly Musculoskeletal: no cyanosis or clubbing, extremities motor strength 5/5 Skin: no rashes, warm and dry Neurologic: PERRLA, cough gag corneal intact. Exam limited due to sedation Psychiatric: Unable to assess due to sedation Genitourinary: Indwelling Montoya catheter present Results & Data Results & Data Vital Signs (Past 12 Hours) Vital Signs Temp Pulse Pulse Resp BP BP Pulse Ox 05/02/23 01:20 36.9 C 133 H 17 164/84 H 98 05/02/23 00:50 134 H 28 H 99 05/02/23 00:45 130 H 16 124/70 100 05/02/23 00:30 127 H 19 100 05/02/23 00:30 124/80 05/02/23 00:25 130 H 14 100 05/02/23 00:25 114/78 05/02/23 00:20 126 H 19 100 05/02/23 00:20 124/75 05/02/23 00:15 129 H 21 99 05/02/23 00:15 138/86 05/02/23 00:10 134 H 26 H 100 05/02/23 00:10 150/101 H 05/02/23 00:05 142/98 H 05/02/23 00:05 132 H 23 100 05/02/23 00:00 128 H 21 05/02/23 00:00 148/100 H 05/01/23 23:56 133 H 22 100 05/01/23 23:56 180/143 H 05/01/23 23:51 134 H 29 H 100 05/01/23 23:51 176/79 H 05/01/23 23:50 135 H 28 H 100 05/01/23 23:46 148/92 H 05/01/23 23:46 133 H 26 H 100 05/01/23 23:40 131 H 20 98 05/01/23 23:35 152/89 H 05/01/23 23:35 129 H 25 H 98 05/01/23 23:31 126 H 21 100 05/01/23 23:31 161/94 H 05/01/23 23:30 125 H 23 05/01/23 23:25 132 H 21 98 05/01/23 23:25 170/103 H 05/01/23 23:20 127 H 30 H 99 05/01/23 23:20 151/92 H 05/01/23 23:16 123 H 22 100 05/01/23 23:16 155/95 H 05/01/23 23:14 124 H 24 100 05/01/23 23:14 178/107 H 05/01/23 23:10 122 H 23 99 05/01/23 23:06 134/102 H 05/01/23 23:06 118 H 24 100 05/01/23 23:00 111 H 18 99 05/01/23 23:00 169/106 H 05/01/23 22:55 173/128 H 05/01/23 22:55 118 H 20 99 05/01/23 22:52 107 H 14 99 05/01/23 22:52 175/110 H 05/01/23 22:20 128 H 28 H 95 05/01/23 23:14 99 05/01/23 22:47 115 H 22 98 05/01/23 21:50 97 05/01/23 21:48 36.8 C 133 H 20 147/101 H 96 05/01/23 21:57 132 H O2 Del Method O2 Flow Rate FiO2 05/02/23 01:20 Mechanical Vent 30 05/02/23 00:50 40 05/02/23 00:45 Mechanical Vent 40 05/02/23 00:30 40 05/02/23 00:30 05/02/23 00:25 Mechanical Vent 40 05/02/23 00:25 05/02/23 00:20 Mechanical Vent 40 05/02/23 00:20 05/02/23 00:15 Mechanical Vent 40 05/02/23 00:15 05/02/23 00:10 Mechanical Vent 40 05/02/23 00:10 05/02/23 00:05 05/02/23 00:05 Mechanical Vent 40 05/02/23 00:00 05/02/23 00:00 05/01/23 23:56 Mechanical Vent 40 05/01/23 23:56 05/01/23 23:51 Mechanical Vent 40 05/01/23 23:51 05/01/23 23:50 Mechanical Vent 40 05/01/23 23:46 05/01/23 23:46 Mechanical Vent 40 05/01/23 23:40 Mechanical Vent 40 05/01/23 23:35 05/01/23 23:35 Mechanical Vent 40 05/01/23 23:31 Mechanical Vent 40 05/01/23 23:31 05/01/23 23:30 05/01/23 23:25 Mechanical Vent 40 05/01/23 23:25 05/01/23 23:20 Mechanical Vent 40 05/01/23 23:20 05/01/23 23:16 Mechanical Vent 40 05/01/23 23:16 05/01/23 23:14 Mechanical Vent 40 05/01/23 23:14 05/01/23 23:10 Mechanical Vent 40 05/01/23 23:06 05/01/23 23:06 Mechanical Vent 40 05/01/23 23:00 Mechanical Vent 40 05/01/23 23:00 05/01/23 22:55 05/01/23 22:55 Mechanical Vent 40 05/01/23 22:52 Mechanical Vent 40 05/01/23 22:52 05/01/23 22:20 05/01/23 23:14 Mechanical Vent 40 05/01/23 22:47 40 05/01/23 21:50 Room Air 0 05/01/23 21:48 Room Air 05/01/23 21:57 Coding Level of Care Code 54394 CRITICAL CARE 1ST 30-74M Diagnoses Suicide attempt by multiple drug overdose T50.912A Altered mental status R41.82
[2023-05-02 02:46] LABS: BUN Creatinine Ratio 16.5 (10-20); Calcium 8.2 mg/dl (8.6-10.3); Creatinine Clr Calc Pharmacy 72.3 ml/min; Est GFR (African American) 80.9 ml/min; Est GFR (Non-African American) 69.8 ml/min; Potassium 4.1 mmol/L (3.5-5.1)
--- NOTE | 2023-05-02 05:09 | Billing Data ---
Date of Service May 02, 2023 Coding Level of Care Code 15910 CRITICAL CARE
[2023-05-02 05:45] LABS: HCO3 ABG 25 mmol/L (19-24); Oxygen Saturation ABG 99.6 % (90-95); PCO2 ABG 40 mmHg (35-46); PO2 ABG 116 mmHg (80-95)
[2023-05-02 05:46] LABS: Allen Test Pos (Pos)
[2023-05-02 05:49] LABS: Basophils # (auto) 0.03 K/uL (0-0.2); Basophils % (auto) 0.4 %; Eosinophils # (auto) 0.01 K/uL (0-0.50); Eosinophils % (auto) 0.1 %; Hematocrit (blood only) 34.8 % (42.0-52.0); Hemoglobin 11.8 g/dl (14.0-18.0); Immature Granulocytes # (auto) 0.02 K/uL (0.01-0.20); Immature Granulocytes % (auto) 0.2 %; Lymphocytes # (auto) 1.01 K/uL (1.2-3.4); Lymphocytes % (auto) 12.1 %; Mean Corpuscular Hemoglobin 30.4 pg (25.0-34.0); Mean Corpuscular Hgb Conc 33.9 g/dL (32.0-36.0); Mean Corpuscular Volume 89.7 fL (80.0-100.0); Mean Platelet Volume 8.9 fL (9.4-12.4); Monocytes # (auto) 0.68 K/uL (0.11-0.59); Monocytes % (auto) 8.1 %; Neutrophils # (auto) 6.63 K/uL (1.40-6.50); Neutrophils % (auto) 79.1 %; Platelet Count 205 K/uL (130-400); RDW Coefficient of Variation 14.6 % (11.5-14.5); RDW Standard Deviation 47.4 fL (36.4-46.3); Red Blood Count 3.88 M/uL (4.70-6.10); White Blood Count 8.38 K/ul (4.8-10.8)
[2023-05-02 06:06] LABS: Albumin Level 3.9 gm/dl (3.4-5.0); Bilirubin Direct 0.1 mg/dl (0-0.2); Bilirubin,Total 0.5 mg/dl (0.2-1.0); Magnesium 1.8 mg/dl (1.7-2.4); Phosphorus 3.3 mg/dl (2.5-4.9); Total Protein 5.7 gm/dl (6.0-8.3)
[2023-05-02 06:13] LABS: Troponin I High Sensitivity 6.8 pg/ml (0-20)
[2023-05-02 06:17] LABS: Partial Thromboplastin Time 27.3 Seconds (21.0-31.0); Prothrombin Time 11.4 Seconds (9.0-12.0)
[2023-05-02] MEDS: ENOXAPARIN INJ 40 MG/0.4 ML SYR SQ SCH (06:24)
[2023-05-02] MEDS: PLASMA-LYTE A 1,000 ML IV SCH ×2 (06:25→15:23)
--- NOTE | 2023-05-02 06:36 | XRay Report ---
XR chest 1V portable CLINICAL HISTORY: ETT placement and OG placement COMPARISON STUDY: Chest radiograph May 01, 2023 at 10:51 PM. FINDINGS: Tip of endotracheal tube is 4.7 cm above the flaco. Tip of nasogastric tube is below the l ower aspect of this image but at least within the body of the stomach. Cardiac size is normal. Contra st. No evidence for pulmonary edema or pneumonia. Postoperative findings within the spine are inciden tally noted. There are postoperative findings within the left lung. IMPRESSION: 1. Tip of endotracheal tube 4.7 cm above the flaco. 2. No acute cardiopulmonary findings. ACT 112: Negative or not required by law. Electronically signed by: Lucian Mahajan M.D. 05/02/2023 6:35 AM
[2023-05-02] MEDS: ICU Protocol for HYPERglycemia SCH ×4 (07:40→20:12)
[2023-05-02] MEDS: PANTOprazole 40 MG in SYRINGE 0 ML IV SCH ×2 (07:40→20:05)
--- NOTE | 2023-05-02 07:53 | Hospitalist Progress Note ---
Date of Service May 02, 2023 Assessment & Plan (1) Intentional overdose of tricyclic antidepressant: (2) Altered mental status: (3) Suicide attempt by multiple drug overdose: (4) GERD (gastroesophageal reflux disease): (5) Depression: (6) Endotracheally intubated: Plan Intentional overdose of tricyclic antidepressants/suicide attempt/agitation/intubated for airway protection- Admission to the ICU Consult account support manager team for management Follow serial CBC with differential, BMP, magnesium, LFTs, phosphorus and ABG Patient reports taking fifteen 100 mg amitriptyline tablets, which was verified by EMS with a pill count Poison control advises EKG every 4 hours, with administration of sodium bicarbonate if QRS becomes greater than 120 Monitor in ED with no ectopy and normal QRS Continue propofol for sedation GERD- Change pantoprazole from 40 mg orally daily to IV Mild dehydration/hypokalemia- Placed on NSS + KCl 20 mEq at 100 mils per hour DVT prophylaxis SCDs plus Lovenox 1 mg/kg subcu daily Admission and Anticipated Discharge Date Admission Date: May 01, 2023 Results & Data Results & Data Vital Signs (Past 12 Hours) Vital Signs Temp Pulse Pulse Resp BP BP Pulse Ox 05/02/23 07:22 88 16 99 05/02/23 05:45 93 H 16 98 05/02/23 05:30 93 H 16 98 05/02/23 05:30 102/73 05/02/23 05:15 94 H 16 99 05/02/23 05:00 92 H 14 99 05/02/23 05:00 109/76 05/02/23 04:45 90 14 98 05/02/23 06:00 36.6 C 91 H 16 105/69 98 05/02/23 05:00 92 H 16 109/76 99 05/02/23 04:00 36.6 C 90 16 100/71 98 05/02/23 03:00 92 H 16 104/71 98 05/02/23 04:30 91 H 14 99 05/02/23 04:30 102/70 05/02/23 04:15 93 H 16 98 05/02/23 04:00 90 16 98 05/02/23 04:00 100/71 05/02/23 03:45 92 H 16 98 05/02/23 03:30 89 16 99 05/02/23 03:30 101/66 05/02/23 03:15 94 H 16 98 05/02/23 03:15 109/75 05/02/23 03:00 92 H 16 98 05/02/23 03:00 104/71 05/02/23 02:45 89 16 98 05/02/23 02:45 102/73 05/02/23 04:00 05/02/23 02:00 96 H 16 96/60 L 98 05/02/23 03:16 97 H 17 98 05/02/23 02:30 91 H 16 98 05/02/23 02:30 92/67 L 05/02/23 02:15 93 H 16 98 05/02/23 02:15 82/57 L 05/02/23 02:00 96 H 16 98 05/02/23 02:00 96/60 L 05/02/23 01:53 98 H 16 98 05/02/23 01:53 97/60 L 05/02/23 01:48 105 H 18 98 05/02/23 01:48 81/52 L 05/02/23 01:45 98 H 16 98 05/02/23 01:45 78/50 L 05/02/23 01:30 114 H 16 98 05/02/23 01:30 95/62 L 05/02/23 01:16 121 H 19 99 05/02/23 01:16 104/68 05/02/23 01:15 120 H 15 99 05/02/23 01:15 89/62 L 05/02/23 01:09 128 H 17 99 05/02/23 01:09 164/84 H 05/02/23 01:04 131 H 23 99 05/02/23 01:11 05/02/23 01:11 121 H 05/02/23 01:11 36.9 C 133 H 17 164/84 H 98 05/02/23 01:20 36.9 C 133 H 17 164/84 H 98 05/02/23 00:50 134 H 28 H 99 05/02/23 00:45 130 H 16 124/70 100 05/02/23 00:30 127 H 19 100 05/02/23 00:30 124/80 05/02/23 00:25 130 H 14 100 05/02/23 00:25 114/78 05/02/23 00:20 126 H 19 100 05/02/23 00:20 124/75 05/02/23 00:15 129 H 21 99 05/02/23 00:15 138/86 05/02/23 00:10 134 H 26 H 100 05/02/23 00:10 150/101 H 05/02/23 00:05 142/98 H 05/02/23 00:05 132 H 23 100 05/02/23 00:00 128 H 21 05/02/23 00:00 148/100 H 05/01/23 23:56 133 H 22 100 05/01/23 23:56 180/143 H 05/01/23 23:51 134 H 29 H 100 05/01/23 23:51 176/79 H 05/01/23 23:50 135 H 28 H 100 05/01/23 23:46 148/92 H 05/01/23 23:46 133 H 26 H 100 05/01/23 23:40 131 H 20 98 05/01/23 23:35 152/89 H 05/01/23 23:35 129 H 25 H 98 05/01/23 23:31 126 H 21 100 05/01/23 23:31 161/94 H 05/01/23 23:30 125 H 23 05/01/23 23:25 132 H 21 98 05/01/23 23:25 170/103 H 05/01/23 23:20 127 H 30 H 99 05/01/23 23:20 151/92 H 05/01/23 23:16 123 H 22 100 05/01/23 23:16 155/95 H 05/01/23 23:14 124 H 24 100 05/01/23 23:14 178/107 H 05/01/23 23:10 122 H 23 99 05/01/23 23:06 134/102 H 05/01/23 23:06 118 H 24 100 05/01/23 23:00 111 H 18 99 05/01/23 23:00 169/106 H 05/01/23 22:55 173/128 H 05/01/23 22:55 118 H 20 99 05/01/23 22:52 107 H 14 99 05/01/23 22:52 175/110 H 05/01/23 22:20 128 H 28 H 95 05/01/23 23:14 99 05/01/23 22:47 115 H 22 98 05/01/23 21:50 97 05/01/23 21:48 36.8 C 133 H 20 147/101 H 96 05/01/23 21:57 132 H O2 Del Method O2 Flow Rate FiO2 05/02/23 07:22 30 05/02/23 05:45 05/02/23 05:30 05/02/23 05:30 05/02/23 05:15 05/02/23 05:00 05/02/23 05:00 05/02/23 04:45 05/02/23 06:00 Mechanical Vent 30 05/02/23 05:00 Mechanical Vent 30 05/02/23 04:00 Mechanical Vent 30 05/02/23 03:00 Mechanical Vent 30 05/02/23 04:30 05/02/23 04:30 05/02/23 04:15 05/02/23 04:00 05/02/23 04:00 05/02/23 03:45 05/02/23 03:30 05/02/23 03:30 05/02/23 03:15 05/02/23 03:15 05/02/23 03:00 05/02/23 03:00 05/02/23 02:45 05/02/23 02:45 05/02/23 04:00 30 05/02/23 02:00 Mechanical Vent 05/02/23 03:16 40 05/02/23 02:30 05/02/23 02:30 05/02/23 02:15 05/02/23 02:15 05/02/23 02:00 05/02/23 02:00 05/02/23 01:53 05/02/23 01:53 05/02/23 01:48 05/02/23 01:48 05/02/23 01:45 05/02/23 01:45 05/02/23 01:30 05/02/23 01:30 05/02/23 01:16 05/02/23 01:16 05/02/23 01:15 05/02/23 01:15 05/02/23 01:09 05/02/23 01:09 05/02/23 01:04 05/02/23 01:11 Mechanical Vent 05/02/23 01:11 05/02/23 01:11 Mechanical Vent 30 05/02/23 01:20 Mechanical Vent 30 05/02/23 00:50 40 05/02/23 00:45 Mechanical Vent 40 05/02/23 00:30 40 05/02/23 00:30 05/02/23 00:25 Mechanical Vent 40 05/02/23 00:25 05/02/23 00:20 Mechanical Vent 40 05/02/23 00:20 05/02/23 00:15 Mechanical Vent 40 05/02/23 00:15 05/02/23 00:10 Mechanical Vent 40 05/02/23 00:10 05/02/23 00:05 05/02/23 00:05 Mechanical Vent 40 05/02/23 00:00 05/02/23 00:00 05/01/23 23:56 Mechanical Vent 40 05/01/23 23:56 05/01/23 23:51 Mechanical Vent 40 05/01/23 23:51 05/01/23 23:50 Mechanical Vent 40 05/01/23 23:46 05/01/23 23:46 Mechanical Vent 40 05/01/23 23:40 Mechanical Vent 40 05/01/23 23:35 05/01/23 23:35 Mechanical Vent 40 05/01/23 23:31 Mechanical Vent 40 05/01/23 23:31 05/01/23 23:30 05/01/23 23:25 Mechanical Vent 40 05/01/23 23:25 05/01/23 23:20 Mechanical Vent 40 05/01/23 23:20 05/01/23 23:16 Mechanical Vent 40 05/01/23 23:16 05/01/23 23:14 Mechanical Vent 40 05/01/23 23:14 05/01/23 23:10 Mechanical Vent 40 05/01/23 23:06 05/01/23 23:06 Mechanical Vent 40 05/01/23 23:00 Mechanical Vent 40 05/01/23 23:00 05/01/23 22:55 05/01/23 22:55 Mechanical Vent 40 05/01/23 22:52 Mechanical Vent 40 05/01/23 22:52 05/01/23 22:20 05/01/23 23:14 Mechanical Vent 40 05/01/23 22:47 40 05/01/23 21:50 Room Air 0 05/01/23 21:48 Room Air 05/01/23 21:57 PG Care Time/CCT Total # of Minutes Spent Total Time Spent with Patient: Total time spent is greater than 50% in coordination of care (as documented) at patient's floor/unit and/or counseling patient: Coding Diagnoses Intentional overdose of tricyclic antidepressant T43.012A Altered mental status R41.82 Suicide attempt by multiple drug overdose T50.912A GERD (gastroesophageal reflux disease) K21.9 Depression F32.A Endotracheally intubated Z97.8
--- NOTE | 2023-05-02 07:54 | XRay Report ---
SINGLE VIEW CHEST CLINICAL HISTORY: Respiratory failure. Intubation. FINDINGS: An AP, portable, supine chest radiograph is compared to study performed earlier the same da y 05/01/2023. An endotracheal tube has been placed. The tip projects approximately 2 cm above the snehal na. The heart appears mildly enlarged. The pulmonary vasculature is nondistended congested. Suture wh ich projects over the left upper lobe. No airspace consolidation or large pleural effusion is identif ied. No pneumothorax is seen. The bony thorax is grossly intact. Fusion hardware is seen in the lower cervical spine. IMPRESSION: 1. An endotracheal tube has been placed as above. 2. No airspace consolidation or large pleural effusion is identified. ACT 112: Negative or not required by law. Electronically signed by: Pedrito Urrutia M.D. 05/02/2023 7:53 AM
--- NOTE | 2023-05-02 08:12 | XRay Report ---
SINGLE VIEW CHEST CLINICAL HISTORY: Overdose. FINDINGS: An AP, portable, upright chest radiograph is compared to study dated 07/20/2014. The cardiom ediastinal silhouette is top normal for projection. Suture projects over the left upper lobe. There i s mild bibasilar atelectasis. The lungs and pleural spaces are otherwise clear. No pneumothorax is se en. The bony thorax is grossly intact. Fusion hardware is noted in the lower cervical spine. IMPRESSION: No acute cardiopulmonary abnormality. ACT 112: Negative or not required by law. Electronically signed by: Pedrito Urrutia M.D. 05/02/2023 8:10 AM
[2023-05-02] MEDS ORDERED: MAGNESIUM SULFATE / D5W 1 GM/100 ML BAG IV ONE (10:00)
[2023-05-02] MEDS ORDERED: PANTOprazole 40 MG in SYRINGE 0 ML IV SCH (11:00)
--- NOTE | 2023-05-02 12:19 | Communication Note ---
Date of Service: May 02, 2023 This patient is status post alcohol withdrawal and propofol was started and then discontinued. Once the patient is a stable they may be able to be downgraded to the telemetry unit. Coding
--- NOTE | 2023-05-02 13:28 | Hospitalist Progress Note ---
Date of Service May 02, 2023 Assessment & Plan (1) Intentional overdose of tricyclic antidepressant: Plan: Acute intentional ingestion - QTC 492, PH 7.4, with normal HCO3 - ETOH negative, Tylenol Negative, and ASA negative - TOX POSITIVE for Marijuana - Continue with IVF - Supportive care as per intensive care- follow respiratory efforts with EtCO2 - Once mentation improves appreciate psych evaluation (2) Altered mental status: Plan: Metabolic Encephalopathy secondary to #1 - supportive care as above (3) Suicide attempt by multiple drug overdose: Plan: As above (4) GERD (gastroesophageal reflux disease): Plan: Continue PPI (5) Depression: Plan: Hold Amytriptyline - follow Admission and Anticipated Discharge Date Admission Date: May 01, 2023 Supervising Physician Co-Signing Physician Notes SENIOR CHEMICAL ENGINEER Supervision Note: I did not personally see or examine the patient. I verified all womack points and agree with Pasquale ROGERS with the following exceptions and/or additions: none. Care per ICU and hospitalist will follow along at this time. 302 pending. Anticipate ultimate discharge to Psych when medically stable. Subjective Patient is HD#1 following admission to the ICU secondary to intentional overdose with TCA- Amitriptyline. Patient was extubated this morning. He was evaluated in ICU. Patient remains somnolent with sonorous respirations and does awaken with trap squeeze to follow commands. Continue with supportive care per diamond die driller. Likely be able to downgrade tomorrow. Agree with psychiatric evaluation when appropriate. CODE: FULL Physical Exam Physical Exam: PHYSICAL EXAM: General: Somnolent awakens to painful stimuli Head: Normocephalic, atraumatic ENT: PERRLA dilted 5-4 brisk, EOMI, no pharyngeal exudate, mucous membranes dry Neuro: AAO x 1, speech garbled and incomprehensible, strength intact bilaterally 5/5, sensation intact and equal all extremities, no pronator drift Chest: equal rise and fall of the chest, no accessory muscle use, no heaves or thrills, Clear to auscultation, on room air, Cardiac: Regular rate and rhythm, telemetry reviewed, skin warm dry, cap refill <3 seconds, peripheral pulses +2 no JVD, no murmur,no edema GI: NABS x 4 quadrants, soft, nontender to palpation, no rebound, guarding or tenderness Psych: ELHAM at this time Skin: no rash or erythema Results & Data Results & Data Vital Signs (Past 12 Hours) Vital Signs Temp Pulse Pulse Resp BP BP Pulse Ox 05/02/23 12:00 94 H 15 95 05/02/23 12:00 129/91 05/02/23 11:30 95 H 14 97 05/02/23 11:30 134/90 05/02/23 11:00 95 H 14 96 05/02/23 11:00 129/88 05/02/23 10:30 96 H 15 96 05/02/23 10:30 126/85 05/02/23 10:00 97 H 15 96 05/02/23 10:00 143/71 H 05/02/23 09:30 93 H 14 97 05/02/23 09:30 124/80 05/02/23 09:15 94 H 15 97 05/02/23 09:00 95 H 15 95 05/02/23 09:00 116/80 05/02/23 08:45 99 H 8 L 95 05/02/23 08:31 120/90 05/02/23 08:31 105 H 24 100 05/02/23 08:30 98 H 15 95 05/02/23 08:15 104 H 23 96 05/02/23 08:00 104 H 14 95 05/02/23 08:00 142/87 H 05/02/23 07:45 90 16 99 05/02/23 07:30 90 16 99 05/02/23 07:30 112/71 05/02/23 07:15 88 16 99 05/02/23 07:00 90 16 99 05/02/23 07:00 108/71 05/02/23 07:22 88 16 99 05/02/23 05:45 93 H 16 98 05/02/23 05:30 93 H 16 98 05/02/23 05:30 102/73 05/02/23 05:15 94 H 16 99 05/02/23 05:00 92 H 14 99 05/02/23 05:00 109/76 05/02/23 04:45 90 14 98 05/02/23 06:00 36.6 C 91 H 16 105/69 98 05/02/23 05:00 92 H 16 109/76 99 05/02/23 04:00 36.6 C 90 16 100/71 98 05/02/23 03:00 92 H 16 104/71 98 05/02/23 04:30 91 H 14 99 05/02/23 04:30 102/70 05/02/23 04:15 93 H 16 98 05/02/23 04:00 90 16 98 05/02/23 04:00 100/71 05/02/23 03:45 92 H 16 98 05/02/23 03:30 89 16 99 05/02/23 03:30 101/66 05/02/23 03:15 94 H 16 98 05/02/23 03:15 109/75 05/02/23 03:00 92 H 16 98 05/02/23 03:00 104/71 05/02/23 02:45 89 16 98 05/02/23 02:45 102/73 05/02/23 04:00 05/02/23 02:00 96 H 16 96/60 L 98 05/02/23 03:16 97 H 17 98 05/02/23 02:30 91 H 16 98 05/02/23 02:30 92/67 L 05/02/23 02:15 93 H 16 98 05/02/23 02:15 82/57 L 05/02/23 02:00 96 H 16 98 05/02/23 02:00 96/60 L 05/02/23 01:53 98 H 16 98 05/02/23 01:53 97/60 L 05/02/23 01:48 105 H 18 98 05/02/23 01:48 81/52 L 05/02/23 01:45 98 H 16 98 05/02/23 01:45 78/50 L 05/02/23 01:30 114 H 16 98 05/02/23 01:30 95/62 L O2 Del Method FiO2 05/02/23 12:00 Room Air 05/02/23 12:00 05/02/23 11:30 Room Air 05/02/23 11:30 05/02/23 11:00 Room Air 05/02/23 11:00 05/02/23 10:30 Room Air 05/02/23 10:30 05/02/23 10:00 Room Air 05/02/23 10:00 05/02/23 09:30 Room Air 05/02/23 09:30 05/02/23 09:15 Room Air 05/02/23 09:00 Room Air 05/02/23 09:00 05/02/23 08:45 Room Air 05/02/23 08:31 05/02/23 08:31 Room Air 05/02/23 08:30 Room Air 05/02/23 08:15 Room Air 05/02/23 08:00 Room Air 05/02/23 08:00 05/02/23 07:45 Mechanical Vent 05/02/23 07:30 05/02/23 07:30 05/02/23 07:15 Mechanical Vent 05/02/23 07:00 Mechanical Vent 05/02/23 07:00 05/02/23 07:22 30 05/02/23 05:45 05/02/23 05:30 05/02/23 05:30 05/02/23 05:15 05/02/23 05:00 05/02/23 05:00 05/02/23 04:45 05/02/23 06:00 Mechanical Vent 05/02/23 05:00 Mechanical Vent 30 05/02/23 04:00 Mechanical Vent 30 05/02/23 03:00 Mechanical Vent 30 05/02/23 04:30 05/02/23 04:30 05/02/23 04:15 05/02/23 04:00 05/02/23 04:00 05/02/23 03:45 05/02/23 03:30 05/02/23 03:30 05/02/23 03:15 05/02/23 03:15 05/02/23 03:00 05/02/23 03:00 05/02/23 02:45 05/02/23 02:45 05/02/23 04:00 30 05/02/23 02:00 Mechanical Vent 05/02/23 03:16 40 05/02/23 02:30 05/02/23 02:30 05/02/23 02:15 05/02/23 02:15 05/02/23 02:00 05/02/23 02:00 05/02/23 01:53 05/02/23 01:53 05/02/23 01:48 05/02/23 01:48 05/02/23 01:45 05/02/23 01:45 05/02/23 01:30 05/02/23 01:30 Laboratory Results Abnormal lab results 05/01/23 05/01/23 05/01/23 Range/Units 21:58 22:00 22:00 RBC (4.70-6.10) M/uL Hgb (14.0-18.0) g/dl POC Hgb (14.0-18.0) g/dl Hct 41.7 L (42.0-52.0) % POC Hct (42-52) % RDW Std Deviation (36.4-46.3) fL RDW Coeff of Chrissy (11.5-14.5) % MPV 9.1 L (9.4-12.4) fL Neut # (Auto) 8.19 H (1.40-6.50) K/uL Lymph # (Auto) 1.10 L (1.2-3.4) K/uL Gentry # (Auto) (0.11-0.59) K/uL POC pO2 (80-95) mmHg POC Total CO2 (24-31) mmol/L ABG pO2 (80-95) mmHg ABG HCO3 (19-24) mmol/L ABG O2 Saturation (90-95) % Potassium 3.4 L (3.5-5.1) mmol/L Chloride (98-107) mmol/L Glucose 115 H (70-99(Fasting)) mg/dl POC Glucose 118 H (70-99) mg/dl Calcium (8.6-10.3) mg/dl Total Protein (6.0-8.3) gm/dl Globulin 2.3 L (2.5-4.0) gm/dl Albumin/Globulin Ratio 2.1 H (0.9-2) Salicylates (3.0-30) mg/dl Acetaminophen (10-30) ug/ml U Marijuana (THC) Screen (Neg) 05/01/23 05/01/23 05/01/23 Range/Units 22:00 23:05 23:23 RBC (4.70-6.10) M/uL Hgb (14.0-18.0) g/dl POC Hgb 10.9 L (14.0-18.0) g/dl Hct (42.0-52.0) % POC Hct 32 L (42-52) % RDW Std Deviation (36.4-46.3) fL RDW Coeff of Chrissy (11.5-14.5) % MPV (9.4-12.4) fL Neut # (Auto) (1.40-6.50) K/uL Lymph # (Auto) (1.2-3.4) K/uL Gentry # (Auto) (0.11-0.59) K/uL POC pO2 61 L (80-95) mmHg POC Total CO2 23 L (24-31) mmol/L ABG pO2 (80-95) mmHg ABG HCO3 (19-24) mmol/L ABG O2 Saturation (90-95) % Potassium (3.5-5.1) mmol/L Chloride (98-107) mmol/L Glucose (70-99(Fasting)) mg/dl POC Glucose (70-99) mg/dl Calcium (8.6-10.3) mg/dl Total Protein (6.0-8.3) gm/dl Globulin (2.5-4.0) gm/dl Albumin/Globulin Ratio (0.9-2) Salicylates < 3.0 L (3.0-30) mg/dl Acetaminophen < 3 L (10-30) ug/ml U Marijuana (THC) Screen Pos H (Neg) 05/02/23 05/02/23 05/02/23 Range/Units 02:04 05:23 05:23 RBC 3.88 L (4.70-6.10) M/uL Hgb 11.8 L (14.0-18.0) g/dl POC Hgb (14.0-18.0) g/dl Hct 34.8 L (42.0-52.0) % POC Hct (42-52) % RDW Std Deviation 47.4 H (36.4-46.3) fL RDW Coeff of Chrissy 14.6 H (11.5-14.5) % MPV 8.9 L (9.4-12.4) fL Neut # (Auto) 6.63 H (1.40-6.50) K/uL Lymph # (Auto) 1.01 L (1.2-3.4) K/uL Gentry # (Auto) 0.68 H (0.11-0.59) K/uL POC pO2 (80-95) mmHg POC Total CO2 (24-31) mmol/L ABG pO2 (80-95) mmHg ABG HCO3 (19-24) mmol/L ABG O2 Saturation (90-95) % Potassium (3.5-5.1) mmol/L Chloride 112 H (98-107) mmol/L Glucose 145 H (70-99(Fasting)) mg/dl POC Glucose (70-99) mg/dl Calcium 8.2 L (8.6-10.3) mg/dl Total Protein 5.7 L (6.0-8.3) gm/dl Globulin (2.5-4.0) gm/dl Albumin/Globulin Ratio (0.9-2) Salicylates (3.0-30) mg/dl Acetaminophen (10-30) ug/ml U Marijuana (THC) Screen (Neg) 05/02/23 05/02/23 05/02/23 Range/Units 05:28 07:19 11:24 RBC (4.70-6.10) M/uL Hgb (14.0-18.0) g/dl POC Hgb (14.0-18.0) g/dl Hct (42.0-52.0) % POC Hct (42-52) % RDW Std Deviation (36.4-46.3) fL RDW Coeff of Chrissy (11.5-14.5) % MPV (9.4-12.4) fL Neut # (Auto) (1.40-6.50) K/uL Lymph # (Auto) (1.2-3.4) K/uL Gentry # (Auto) (0.11-0.59) K/uL POC pO2 (80-95) mmHg POC Total CO2 (24-31) mmol/L ABG pO2 116 H (80-95) mmHg ABG HCO3 25 H (19-24) mmol/L ABG O2 Saturation 99.6 H (90-95) % Potassium (3.5-5.1) mmol/L Chloride (98-107) mmol/L Glucose (70-99(Fasting)) mg/dl POC Glucose 105 H 104 H (70-99) mg/dl Calcium (8.6-10.3) mg/dl Total Protein (6.0-8.3) gm/dl Globulin (2.5-4.0) gm/dl Albumin/Globulin Ratio (0.9-2) Salicylates (3.0-30) mg/dl Acetaminophen (10-30) ug/ml U Marijuana (THC) Screen (Neg) Diagnostic Findings Chest X-Ray 05/01/23 21:59 SINGLE VIEW CHEST CLINICAL HISTORY: Overdose. FINDINGS: An AP, portable, upright chest radiograph is compared to study dated 07/20/2014. The cardiomediastinal silhouette is top normal for projection. Suture projects over the left upper lobe. There is mild bibasilar atelectasis. The lungs and pleural spaces are otherwise clear. No pneumothorax is seen. The bony thorax is grossly intact. Fusion hardware is noted in the lower cervical spine. IMPRESSION: No acute cardiopulmonary abnormality. ACT 112: Negative or not required by law. Electronically signed by: Pedrito Urrutia M.D. 05/02/2023 8:10 AM Chest X-Ray 05/01/23 22:49 SINGLE VIEW CHEST CLINICAL HISTORY: Respiratory failure. Intubation. FINDINGS: An AP, portable, supine chest radiograph is compared to study perf ormed earlier the same day 05/01/2023. An endotracheal tube has been placed. The tip projects approximately 2 cm above the flaco. The heart appears mildly enlarged. The pulmonary vasculature is nondistended congested. Suture which projects over the left upper lobe. No airspace consolidation or large pleural effusion is identified. No pneumothorax is seen. The bony thorax is grossly intact. Fusion hardware is seen in the lower cervical spine. IMPRESSION: 1. An endotracheal tube has been placed as above. 2. No airspace consolidation or large pleural effusion is identified. ACT 112: Negative or not required by law. Electronically signed by: Pedrito Urrutia M.D. 05/02/2023 7:53 AM Chest X-Ray 05/02/23 01:33 XR chest 1V portable CLINICAL HISTORY: ETT placement and OG placement COMPARISON STUDY: Chest radiograph May 01, 2023 at 10:51 PM. FINDINGS: Tip of endotracheal tube is 4.7 cm above the flaco. Tip of nasogastric tube is below the lower aspect of this image but at least within the body of the stomach. Cardiac size is normal. Contrast. No evidence for pulmonary edema or pneumonia. Postoperative findings within the spine are incidentally noted. There are postoperative findings within the left lung. IMPRESSION: 1. Tip of endotracheal tube 4.7 cm above the flaco. 2. No acute cardiopulmonary findings. ACT 112: Negative or not required by law. Electronically signed by: Lucian Mahajan M.D. 05/02/2023 6:35 AM Medications Administered Enoxaparin Sodium (Enoxaparin Inj 40 Mg/0.4 Ml Syr) 40 mg SQ Q24H EMBER Stop: 06/01/23 05:59 Last Admin: 05/02/23 06:24 Dose: 40 mg Documented By: JAMES Pantoprazole Sodium 40 mg/ (Syringe) 10 mls @ 5 mls/min IV BID EMBER Stop: 06/01/23 08:59 Last Admin: 05/02/23 07:40 Dose: 5 mls/min Documented By: RUFUS Parenteral Electrolytes (Plasma-Lyte A Ph 7.4) 1,000 mls @ 100 mls/hr IV .Q10H EMBER Stop: 06/01/23 06:14 Last Admin: 05/02/23 06:25 Dose: 100 mls/hr Documented By: JAMES Miscellaneous (Icu Protocol For Hyperglycemia) 1 each N/A ACHS EMBER Stop: 05/04/23 07:29 Last Admin: 05/02/23 12:58 Dose: 1 each Documented By: Admin: 05/02/23 07:40 Dose: 1 each Documented By: RUFUS Discontinued Medications Sodium Chloride (Nss 1000ml) 1,000 mls @ 999 mls/hr IV .Q1H1M ONE Stop: 05/01/23 23:10 Last Infusion: 05/01/23 23:00 Dose: 0 mls/hr Documented By: DEVELOPMENTAL MATHEMATICS PROFESSOR Admin: 05/01/23 22:18 Dose: 999 mls/hr Documented By: DEVELOPMENTAL MATHEMATICS PROFESSOR Propofol (Diprivan) 1,000 mg in 100 mls @ 5.702 mls/hr IV .[id number] [facility]; Protocol Stop: 05/04/23 23:29 Last Titration: 05/02/23 07:37 Dose: 12 mcg/kg/min, 5.7 mls/hr Documented By: Admin: 05/02/23 07:35 Dose: 25 mcg/kg/min, 11.9 mls/hr Documented By: RUFUS Co-signed By: NATALIE Titration: 05/02/23 07:35 Dose: 25 mcg/kg/min, 11.9 mls/hr Documented By: RUFUS Co-signed By: NATALIE Titration: 05/02/23 06:15 Dose: 25 mcg/kg/min, 11.9 mls/hr Documented By: JAMES Co-signed By: VERN Admin: 05/02/23 06:15 Dose: 25 mcg/kg/min, 11.9 mls/hr Documented By: JAMES Co-signed By: VERN Titration: 05/02/23 06:00 Dose: 25 mcg/kg/min, 11.9 mls/hr Documented By: Titration: 05/02/23 05:00 Dose: 25 mcg/kg/min, 11.9 mls/hr Documented By: Titration: 05/02/23 04:00 Dose: 25 mcg/kg/min, 11.9 mls/hr Documented By: Titration: 05/02/23 03:00 Dose: 25 mcg/kg/min, 11.9 mls/hr Documented By: Titration: 05/02/23 02:10 Dose: 35 mcg/kg/min, 16.6 mls/hr Documented By: Admin: 05/02/23 01:42 Dose: 45 mcg/kg/min, 21.4 mls/hr Documented By: JAMES Co-signed By: VERN Titration: 05/02/23 01:42 Dose: 20 mcg/kg/min, 9.5 mls/hr Documented By: JAMES Co-signed By: VERN Admin: 05/01/23 22:53 Dose: 20 mcg/kg/min, 9.5 mls/hr Documented By: DEVELOPMENTAL MATHEMATICS PROFESSOR Co-signed By: CAW Potassium Chloride/Sodium Chloride (Normal Saline W/20 Meq Kcl) 20 meq in 1,000 mls @ 100 mls/hr IV .Q10H EMBER Stop: 06/01/23 01:10 Last Infusion: 05/02/23 06:26 Dose: 0 mls/hr Documented By: Infusion: 05/02/23 06:26 Dose: 0 mls/hr Documented By: Admin: 05/02/23 01:43 Dose: 100 mls/hr Documented By: JAMES Magnesium Sulfate/Dextrose (Magnesium Sulfate / D5w) 1 gm in 100 mls @ 50 mls /hr IV ONE ONE Stop: 05/02/23 11:59 Last Infusion: 05/02/23 12:58 Dose: 0 mls/hr Documented By: Admin: 05/02/23 10:34 Dose: 50 mls/hr Documented By: RUFUS Miscellaneous (Rapid Sequence Induction Bag) Confirm Administered Dose 1 each N/A .STK-MED ONE Stop: 05/01/23 22:42 Last Admin: 05/01/23 22:45 Dose: 1 each Documented By: JULIO C Miscellaneous (Stat Iv Infusion Titration Per Protocol) 1 each N/A NOW STA Stop: 05/01/23 23:24 Last Admin: 05/02/23 07:40 Dose: Not Given Documented By: RUFUS Propofol (Propofol Iv Emulsion 10 Mg/Ml 100 Ml Vial) Confirm Administered Dose 1,000 mg IV .STK-MED ONE Stop: 05/01/23 22:50 Last Admin: 05/01/23 22:53 Dose: 1,000 mg Documented By: JULIO C Co-signed By: TONIA PG Care Time/CCT Total # of Minutes Spent Total Time Spent with Patient: Total time spent is greater than 50% in coordination of care (as documented) at patient's floor/unit and/or counseling patient: Coding Level of Care Code 72323 SUB INP/OBS CARE 2/35MIN Medical Decision Making Moderate Complexity Diagnoses Intentional overdose of tricyclic antidepressant T43.012A Altered mental status R41.82 Suicide attempt by multiple drug overdose T50.912A GERD (gastroesophageal reflux disease) K21.9 Depression F32.A Time Spent (min) 40
--- NOTE | 2023-05-02 14:50 | Electrocardiogram Report ---
Test Reason : Blood Pressure : / mmHG Vent. Rate : 133 BPM Atrial Rate : 133 BPM P-R Int : 134 ms QRS Dur : 100 ms QT Int : 306 ms P-R-T Axes : 042 083 033 degrees QTc Int : 455 ms Sinus tachycardia Minimal voltage criteria for LVH, may be normal variant Abnormal ECG When compared with ECG of 20-JUL-2014 13:41, Vent. rate has increased BY 81 BPM Confirmed by Donal Muñoz ([id number]) on 05/02/2023 2:50:11 PM Referred By: REFERRED SELF Confirmed By:Donal Muñoz
--- NOTE | 2023-05-02 14:53 | Electrocardiogram Report ---
Test Reason : Blood Pressure : / mmHG Vent. Rate : 105 BPM Atrial Rate : 108 BPM P-R Int : 186 ms QRS Dur : 114 ms QT Int : 364 ms P-R-T Axes : 050 032 036 degrees QTc Int : 481 ms Sinus tachycardia Otherwise normal ECG When compared with ECG of 01-MAY-2023 21:56, (unconfirmed) No significant change was found Confirmed by Donal Muñoz ([id number]) on 05/02/2023 2:53:19 PM Referred By: REFERRED SELF Confirmed By:Donal Muñoz
--- NOTE | 2023-05-02 14:53 | Electrocardiogram Report ---
Test Reason : Blood Pressure : / mmHG Vent. Rate : 117 BPM Atrial Rate : 117 BPM P-R Int : 174 ms QRS Dur : 092 ms QT Int : 330 ms P-R-T Axes : 058 096 019 degrees QTc Int : 460 ms Sinus tachycardia Rightward axis Inferior infarct , age undetermined Poor R wave progression, consider anterior WI vs. lead placement vs. LVH Abnormal ECG When compared with ECG of 01-MAY-2023 22:50, (unconfirmed) Questionable change in QRS duration Inferior infarct is now Present Confirmed by Donal Muñoz ([id number]) on 05/02/2023 2:52:58 PM Referred By: REFERRED SELF Confirmed By:Donal Muñoz
--- NOTE | 2023-05-02 14:55 | Electrocardiogram Report ---
Test Reason : Blood Pressure : / mmHG Vent. Rate : 094 BPM Atrial Rate : 094 BPM P-R Int : 184 ms QRS Dur : 096 ms QT Int : 376 ms P-R-T Axes : 022 063 013 degrees QTc Int : 470 ms Normal sinus rhythm Normal ECG When compared with ECG of 02-MAY-2023 01:23, (unconfirmed) No significant change was found Confirmed by Donal Muñoz ([id number]) on 05/02/2023 2:55:08 PM Referred By: REFERRED SELF Confirmed By:Donal Muñoz
--- NOTE | 2023-05-02 15:10 | Electrocardiogram Report ---
Test Reason : Blood Pressure : / mmHG Vent. Rate : 102 BPM Atrial Rate : 102 BPM P-R Int : 190 ms QRS Dur : 102 ms QT Int : 370 ms P-R-T Axes : 043 035 009 degrees QTc Int : 482 ms Sinus tachycardia Inferior infarct , age undetermined Abnormal ECG When compared with ECG of 02-MAY-2023 05:33, (unconfirmed) No significant change was found Confirmed by Donal Muñoz ([id number]) on 05/02/2023 3:10:13 PM Referred By: REFERRED SELF Confirmed By:Donal Muñoz
--- NOTE | 2023-05-02 15:15 | Electrocardiogram Report ---
Test Reason : Blood Pressure : / mmHG Vent. Rate : 096 BPM Atrial Rate : 096 BPM P-R Int : 204 ms QRS Dur : 112 ms QT Int : 390 ms P-R-T Axes : 031 006 024 degrees QTc Int : 492 ms Normal sinus rhythm Prolonged QT Abnormal ECG When compared with ECG of 02-MAY-2023 08:40, (unconfirmed) No significant change was found Confirmed by Donal Muñoz ([id number]) on 05/02/2023 3:15:19 PM Referred By: REFERRED SELF Confirmed By:Donal Muñoz
[2023-05-03] MEDS: PLASMA-LYTE A 1,000 ML IV SCH ×3 (01:25→22:04)
[2023-05-03] MEDS: propofoL 1,000 MG/100 ML VIAL IV SCH (03:01)
[2023-05-03] MEDS ORDERED: OLANZapine 10 MG/2.1 ML SDV IM STA ×2 (03:28→05:36)
[2023-05-03 05:02] LABS: Base Excess ABG 3.7 mEq/L (-9-1.8); HCO3 ABG 26 mmol/L (19-24); Oxygen Saturation ABG 98.3 % (90-95); PCO2 ABG 32 mmHg (35-46); PO2 ABG 77 mmHg (80-95)
[2023-05-03] MEDS: ENOXAPARIN INJ 40 MG/0.4 ML SYR SQ SCH (05:07)
[2023-05-03 05:08] LABS: Allen Test Pos (Pos)
[2023-05-03 05:10] LABS: pH ABG 7.52 (7.35-7.45)
[2023-05-03 05:13] LABS: Basophils # (auto) 0.02 K/uL (0-0.2); Basophils % (auto) 0.2 %; Hematocrit (blood only) 35.2 % (42.0-52.0); Hemoglobin 12.3 g/dl (14.0-18.0); Immature Granulocytes # (auto) 0.02 K/uL (0.01-0.20); Immature Granulocytes % (auto) 0.2 %; Lymphocytes # (auto) 1.11 K/uL (1.2-3.4); Lymphocytes % (auto) 10.3 %; Mean Corpuscular Hemoglobin 30.3 pg (25.0-34.0); Mean Corpuscular Hgb Conc 34.9 g/dL (32.0-36.0); Mean Corpuscular Volume 86.7 fL (80.0-100.0); Monocytes # (auto) 0.74 K/uL (0.11-0.59); Monocytes % (auto) 6.9 %; Neutrophils # (auto) 8.88 K/uL (1.40-6.50); Neutrophils % (auto) 82.4 %; Platelet Count 191 K/uL (130-400); RDW Coefficient of Variation 14.3 % (11.5-14.5); RDW Standard Deviation 45.6 fL (36.4-46.3); Red Blood Count 4.06 M/uL (4.70-6.10); White Blood Count 10.77 K/ul (4.8-10.8)
[2023-05-03 05:26] LABS: Albumin Level 4.1 gm/dl (3.4-5.0); Bilirubin Direct 0.1 mg/dl (0-0.2); Bilirubin,Total 0.8 mg/dl (0.2-1.0); Magnesium 2.1 mg/dl (1.7-2.4); Phosphorus 2.4 mg/dl (2.5-4.9); Total Protein 6.1 gm/dl (6.0-8.3)
[2023-05-03 05:39] LABS: Partial Thromboplastin Ratio 1.1; Partial Thromboplastin Time 30.9 Seconds (21.0-31.0); Prothrombin Time 11.4 Seconds (9.0-12.0)
[2023-05-03 07:59] LABS: BUN Creatinine Ratio 8.2 (10-20); Calcium 8.6 mg/dl (8.6-10.3); Creatinine Clr Calc Pharmacy 84.8 ml/min; Est GFR (African American) 98.1 ml/min; Est GFR (Non-African American) 84.6 ml/min; Potassium 3.3 mmol/L (3.5-5.1)
[2023-05-03] MEDS ORDERED: LORazepam 2 MG/1 ML VIAL IV PRN ×4 (08:14→11:09)
[2023-05-03] MEDS: PANTOprazole 40 MG in SYRINGE 0 ML IV SCH ×2 (08:14→20:19)
[2023-05-03] MEDS ORDERED: POTASSIUM CHLORIDE CRTAB 20 MEQ TABCR PO STA (08:14)
--- NOTE | 2023-05-03 10:40 | Hospitalist Progress Note ---
Date of Service May 03, 2023 Assessment & Plan (1) Intentional overdose of tricyclic antidepressant: Plan: Acute intentional ingestion - ETOH negative, Tylenol Negative, and ASA negative - TOX POSITIVE for Marijuana - Continue with IVF - Once mentation improves appreciate psych evaluation - Patient should be out of effects from amitriptyline- see below - Need for 302 likely within next 24-48 hours- follow closely- initially declined by - have discussed with her today at bedside and is with better understanding of why/need. reports he takes this only for sleep and has been on this for many years. (2) Delirium: Plan: Acute Delirium with agitation - DDX: Acute withdraw vs. Metabolic Encephalopathy vs Acute Delirium or combination of both - As he is hallucinating, remains tachycardic, hypertensive, and tachypneic- will treat for acute ETOH withdraw with Ativan - He showed improvement with dosing- however if remains with agitation and not responsive to Benzo's- consider NARD - Follow electrolytes and acid base (3) Suicide attempt by multiple drug overdose: Plan: As above (4) GERD (gastroesophageal reflux disease): Plan: Continue PPI (5) Depression: Plan: Hold Amytriptyline ? Diagnosis- no history reported by - follow and await ability to get psych eval Admission and Anticipated Discharge Date Admission Date: May 01, 2023 Supervising Physician Co-Signing Physician Notes [employer]OPH[employer]ICAL DRAFTER Supervision Note: I did not personally see or examine the patient. I verified all womack points and agree with KEN Lizama with the following exceptions and/or additions: none Subjective Patient is HD#3 following admission to the ICU secondary to intentional overdose with TCA- Amitriptyline. Patient was downgraded from ICU in evening of 05/02/23- overnight events noted for agitation, delirium, combativeness with striking staff. He was placed in 4 point behavioral restraints and initiated on Zyprexa 5mg IM x2 with no effect. He was evaluated this morning and remained in 4 point restraints- he was notably tachycardic, tachypenic and hypertensive. He is positive for hallucinations of seeing his brothers in the room. He states there are "8 people in the room"- there were only 3. He is attempting to get up out of bed and "shower before everybody comes to pull down the wiring". He is over 48 hours from his amitriptyline overdose and would expect his mentation and his HR to have improved. Unsure of his ETOH use however he stated "yeah i drink 2-3 beers whenever". Will treat patient for possible DT's regarding his delirium, tachycardia, hypertension. Will place on Ativan, Thiamine and Folic Acid. If no improvement then this is likely NARD (non-alcoholic delirium) or other. Discussed with on the unit this afternoon, updated on current plan and assessment as above. We did further discuss possible need for 302 and is in better understanding of need/purpose. Likely possible within next 24-48 hour. CODE: FULL Physical Exam Physical Exam: PHYSICAL EXAM: General: Awake, agitated, Head: Normocephalic, atraumatic ENT: PERRLA 3-4 brisk, EOMI, no pharyngeal exudate, mucous membranes dry Neuro: AAO x 1, speech inappropriate and slurred, strength intact bilaterally 5/5, sensation intact and equal all extremities, no focal or facial deficits Chest: equal rise and fall of the chest, no accessory muscle use, no heaves or thrills, Clear to auscultation, on room air, Cardiac: Regular rate and rhythm, telemetry reviewed- NSR/Sinus Tach, skin warm dry, cap refill <3 seconds, peripheral pulses +2 no JVD, no murmur,no edema GI: NABS x 4 quadrants, soft, nontender to palpation, no rebound, guarding or tenderness Psych: Delirium +, Hallucinations + trembling + Skin: no rash or erythema Results & Data Results & Data Vital Signs (Past 12 Hours) Vital Signs Temp Pulse Resp BP Pulse Ox O2 Del Method 05/03/23 10:00 107 H 20 05/03/23 09:00 109 H 18 05/03/23 08:00 126 H 22 05/03/23 08:00 154/90 H 05/03/23 07:31 119 H 19 96 05/03/23 07:31 122/93 05/03/23 07:00 117 H 27 H 05/03/23 06:00 128 H 22 93 05/03/23 05:00 107 H 20 05/03/23 08:00 Room Air 05/03/23 08:00 118 H 05/03/23 04:01 37.3 C 118 H 23 134/96 93 Room Air 05/03/23 04:00 115 H 93 05/03/23 03:00 112 H 23 92 05/03/23 02:00 107 H 20 102/76 94 Room Air 05/03/23 01:02 111 H 29 H 148/57 H 95 05/03/23 01:00 108 H 16 95 05/03/23 00:00 37.1 C 108 H 28 H 168/100 H 96 Room Air 05/02/23 23:00 109 H 19 149/96 H 96 Room Air 05/03/23 00:00 108 H Laboratory Results Abnormal lab results 05/02/23 05/02/23 05/03/23 Range/Units 16:48 20:06 04:50 RBC 4.06 L (4.70-6.10) M/uL Hgb 12.3 L (14.0-18.0) g/dl Hct 35.2 L (42.0-52.0) % MPV 9.0 L (9.4-12.4) fL Neut # (Auto) 8.88 H (1.40-6.50) K/uL Lymph # (Auto) 1.11 L (1.2-3.4) K/uL [place] # (Auto) 0.74 H (0.11-0.59) K/uL ABG pH (7.35-7.45) ABG pCO2 (35-46) mmHg ABG pO2 (80-95) mmHg ABG HCO3 (19-24) mmol/L ABG O2 Saturation (90-95) % ABG Base Excess (-9-1.8) mEq/L Potassium (3.5-5.1) mmol/L Chloride (98-107) mmol/L BUN/Creatinine Ratio (10-20) Glucose (70-99(Fasting)) mg/dl POC Glucose 106 H 108 H (70-99) mg/dl Phosphorus (2.5-4.9) mg/dl 05/03/23 05/03/23 05/03/23 Range/Units 04:50 04:55 07:26 RBC (4.70-6.10) M/uL Hgb (14.0-18.0) g/dl Hct (42.0-52.0) % MPV (9.4-12.4) fL Neut # (Auto) (1.40-6.50) K/uL Lymph # (Auto) (1.2-3.4) K/uL [place] # (Auto) (0.11-0.59) K/uL ABG pH 7.52 H* (7.35-7.45) ABG pCO2 32 L (35-46) mmHg ABG pO2 77 L (80-95) mmHg ABG HCO3 26 H (19-24) mmol/L ABG O2 Saturation 98.3 H (90-95) % ABG Base Excess 3.7 H (-9-1.8) mEq/L Potassium 3.3 L (3.5-5.1) mmol/L Chloride 109 H (98-107) mmol/L BUN/Creatinine Ratio 8.2 L (10-20) Glucose 120 H (70-99(Fasting)) mg/dl POC Glucose (70-99) mg/dl Phosphorus 2.4 L (2.5-4.9) mg/dl Medications Administered Active Medications Acetaminophen (Acetaminophen 1000 Mg/100 Ml Iv) 1,000 mg IV Q8H PRN PRN Reason: Pain or Fever Stop: 05/05/23 01:10 Last Admin: 05/03/23 02:37 Dose: 1,000 mg Albuterol (Albut/Ipratrop 3mg/0.5mg Neb 3 Ml Vial) 3 ml INH Q4H PRN PRN Reason: Dyspnea Stop: 06/01/23 01:10 Enoxaparin Sodium (Enoxaparin Inj 40 Mg/0.4 Ml Syr) 40 mg SQ Q24H [facility] Stop: 06/01/23 05:59 Last Admin: 05/03/23 05:07 Dose: 40 mg Folic Acid (Folic Acid 1 Mg Tab) 1 mg PO QAM [facility] Stop: 06/02/23 10:44 Pantoprazole Sodium 40 mg/ (Syringe) 10 mls @ 5 mls/min IV BID EMB[facility] Stop: 06/01/23 08:59 Last Admin: 05/03/23 08:14 Dose: 5 mls/min Parenteral Electrolytes (Plasma-Lyte A Ph 7.4) 1,000 mls @ 100 mls/hr IV .Q10H [facility] Stop: 06/01/23 06:14 Last Admin: 05/03/23 11:43 Dose: 100 mls/hr Thiamine HCl 200 mg/ Sodium (Chloride) 52 mls @ 210 mls/hr IV QAM [facility] Stop: 06/02/23 10:44 Last Infusion: 05/03/23 11:59 Dose: Infused Lorazepam (Lorazepam 2 Mg/1 Ml Vial) 1 mg IV Q8H PRN PRN Reason: Anxiety/Agitation Stop: 06/02/23 08:13 Last Admin: 05/03/23 08:34 Dose: 1 mg Lorazepam (Lorazepam 2 Mg/1 Ml Vial) 2 mg IV UD PRN; Protocol PRN Reason: EtOH Withdrawal AWSS Score 8,9 Stop: 06/02/23 11:08 Lorazepam (Lorazepam 2 Mg/1 Ml Vial) 1 mg IV UD PRN; Protocol PRN Reason: EtOH Withdrawal AWSS Score 6,7 Stop: 06/02/23 11:08 PG Care Time/CCT Total # of Minutes Spent Total Time Spent with Patient: Total time spent is greater than 50% in coordination of care (as documented) at patient's floor/unit and/or counseling patient: Coding Level of Care Code 48357 SUB INP/OBS CARE 3/50MIN Medical Decision Making Moderate Complexity Diagnoses Intentional overdose of tricyclic antidepressant T43.012A Delirium R41.0 Suicide attempt by multiple drug overdose T50.912A GERD (gastroesophageal reflux disease) K21.9 Depression F32.A
[2023-05-03] MEDS ORDERED: Ativan IV Alcohol Withdrawal--Active Protocol IV PRN (11:09)
--- NOTE | 2023-05-03 11:23 | Communication Note ---
Date of Service: May 03, 2023 consult received/reviewed. Patient was initially intubated s/p TCA OD, QTc 492 yesterday then overly sedated in pm followed by period of agitation and need for IM Zyprexa and restraints over night. Will follow. A 302 warrant should be obtained if his encephalopathy improved and he attempted to leave AMA.
[2023-05-03] MEDS: THIAMINE HCL 200 MG in SODIUM CHLORIDE 0.9% 50 ML IV SCH (11:43)
[2023-05-03] MEDS: FOLIC ACID 1 MG TAB PO SCH (16:23)
[2023-05-03] MEDS: LORazepam 2 MG/1 ML VIAL IV PRN ×2 (17:23→21:47)
[2023-05-03 23:18] LABS: Marijuana Quant, GCMS Urine 513 ng/mL (<5)
[2023-05-04] MEDS: LORazepam 2 MG/1 ML VIAL IV PRN (02:55)
[2023-05-04] MEDS: ENOXAPARIN INJ 40 MG/0.4 ML SYR SQ SCH (05:35)
[2023-05-04 07:16] LABS: Base Excess ABG 0.7 mEq/L (-9-1.8); HCO3 ABG 24 mmol/L (19-24); PCO2 ABG 35 mmHg (35-46); PO2 ABG 70 mmHg (80-95); pH ABG 7.45 (7.35-7.45)
[2023-05-04 07:16] LABS: Basophils # (auto) 0.03 K/uL (0-0.2); Basophils % (auto) 0.3 %; Eosinophils # (auto) 0.03 K/uL (0-0.50); Eosinophils % (auto) 0.3 %; Hematocrit (blood only) 35.3 % (42.0-52.0); Hemoglobin 12.1 g/dl (14.0-18.0); Immature Granulocytes # (auto) 0.05 K/uL (0.01-0.20); Immature Granulocytes % (auto) 0.5 %; Lymphocytes # (auto) 1.01 K/uL (1.2-3.4); Lymphocytes % (auto) 10.3 %; Mean Corpuscular Hemoglobin 30.1 pg (25.0-34.0); Mean Corpuscular Hgb Conc 34.3 g/dL (32.0-36.0); Mean Corpuscular Volume 87.8 fL (80.0-100.0); Monocytes # (auto) 0.72 K/uL (0.11-0.59); Monocytes % (auto) 7.3 %; Neutrophils # (auto) 7.96 K/uL (1.40-6.50); Neutrophils % (auto) 81.3 %; Platelet Count 190 K/uL (130-400); RDW Coefficient of Variation 13.9 % (11.5-14.5); RDW Standard Deviation 44.9 fL (36.4-46.3); Red Blood Count 4.02 M/uL (4.70-6.10)
[2023-05-04 07:17] LABS: Allen Test POS (Pos)
[2023-05-04 07:34] LABS: Albumin Level 3.8 gm/dl (3.4-5.0); Bilirubin Direct 0.1 mg/dl (0-0.2); Bilirubin,Total 0.7 mg/dl (0.2-1.0); Calcium 8.7 mg/dl (8.6-10.3); Creatinine Clr Calc Pharmacy 83.1 ml/min; Est GFR (African American) 95.7 ml/min; Est GFR (Non-African American) 82.6 ml/min; Magnesium 2.2 mg/dl (1.7-2.4); Phosphorus 2.3 mg/dl (2.5-4.9); Potassium 3.8 mmol/L (3.5-5.1); Total Protein 6.1 gm/dl (6.0-8.3)
[2023-05-04 07:42] LABS: Partial Thromboplastin Ratio 1.2; Partial Thromboplastin Time 33.9 Seconds (21.0-31.0)
--- NOTE | 2023-05-04 08:05 | Hospitalist Progress Note ---
Date of Service May 04, 2023 Assessment & Plan (1) Intentional overdose of tricyclic antidepressant: Plan: Acute intentional ingestion - ETOH negative, Tylenol Negative, and ASA negative - Tox + for Marijuana, patient endorses daily use to Behavioral Health liaison - Behavioral Health evaluated patient, still recommending Psych on discharge, anticipate discharge to Psych tomorrow as patient continues to clinically improve - Can stop VIF in favor of oral intake (2) Delirium: Plan: Acute Delirium with agitation - DDX: Acute alcohol withdraw vs. metabolic encephalopathy vs acute delirium - Symptoms much improved, has not required Ativan since start of day shift today, continue to monitor for evidence of withdrawal - Appreciate Psych input as above (3) Suicide attempt by multiple drug overdose: Plan: As above (4) GERD (gastroesophageal reflux disease): Plan: Continue PPI (5) Depression: Plan: - History of suicide gestures/attempt, most recent 3 months ago - Firearms have been removed from the house - Hold Amitriptyline, medications as per Psych discretion with inpatient Psych admission on discharge Plan Continued monitoring on telemetry floor this evening, and anticipate discharge to Psych tomorrow if clinically stable Admission and Anticipated Discharge Date Admission Date: May 01, 2023 Subjective Overnight received lorazepam total of 5 milligrams for elevated AWSS scores This afternoon sleepy but arousable to voice, denies pain, no SOB, no nausea Review of Systems Review of Systems: All systems reviewed & are unremarkable except as noted in Subjective Physical Exam Constitutional: WD/WN, vitals as above Respiratory: normal respiratory effort, lungs clear to auscultation Cardiovascular: RRR, no murmur, no edema Gastrointestinal (Abdomen): normal bowel sounds, soft, nontender, no hepatosplenomegaly Skin: no rashes, warm and dry Psychiatric: alert and oriented x3, sleepy but arouses to voice Results & Data Results & Data Vital Signs (Past 12 Hours) Vital Signs Temp Pulse Pulse Resp BP BP Pulse Ox 05/04/23 08:00 36.6 C 98 H 20 137/93 94 05/04/23 02:47 36.7 C 101 H 129/93 95 05/04/23 00:00 92 H 05/03/23 22:00 05/03/23 23:13 36.7 C 94 H 20 141/99 H 95 05/03/23 21:00 05/03/23 21:00 93 H 26 H 97 05/03/23 21:00 143/102 H 05/03/23 20:30 141/92 H 05/03/23 20:30 99 H 23 97 O2 Del Method 05/04/23 08:00 Room Air 05/04/23 02:47 Room Air 05/04/23 00:00 05/03/23 22:00 Room Air 05/03/23 23:13 Room Air 05/03/23 21:00 Room Air 05/03/23 21:00 05/03/23 21:00 05/03/23 20:30 05/03/23 20:30 PG Care Time/CCT Total # of Minutes Spent Total Time Spent with Patient: Total time spent is greater than 50% in coordination of care (as documented) at patient's floor/unit and/or counseling patient: Coding Level of Care Code 23804 SUB INP/OBS CARE 3/50MIN Diagnoses Intentional overdose of tricyclic antidepressant T43.012A Delirium R41.0 Suicide attempt by multiple drug overdose T50.912A GERD (gastroesophageal reflux disease) K21.9 Depression F32.A
[2023-05-04] MEDS: FOLIC ACID 1 MG TAB PO SCH (08:20)
[2023-05-04] MEDS: PLASMA-LYTE A 1,000 ML IV SCH (08:20)
[2023-05-04] MEDS: PANTOprazole 40 MG in SYRINGE 0 ML IV SCH ×2 (08:20→21:18)
[2023-05-04] MEDS: THIAMINE HCL 200 MG in SODIUM CHLORIDE 0.9% 50 ML IV SCH (08:23)
[2023-05-04] MEDS ORDERED: FOLIC ACID 1 MG in SYRINGE 9.8 ML IV STA (11:06)
--- NOTE | 2023-05-04 11:15 | Communication Note ---
Date of Service: May 04, 2023 Patient remains sedated with AMS, receiving Ativan prn AWSS, will need contacted for more collateral. Unable to participate in consult today re: intent ionality around OD, Dr. De Jesus to assume clinical responsibility for consult service at 1700 hrs.
[2023-05-05] MEDS: ENOXAPARIN INJ 40 MG/0.4 ML SYR SQ SCH (06:03)
[2023-05-05 06:57] LABS: BUN Creatinine Ratio 14.3 (10-20); Creatinine Clr Calc Pharmacy 79.2 ml/min; Est GFR (African American) 90.3 ml/min; Est GFR (Non-African American) 77.9 ml/min; Potassium 3.8 mmol/L (3.5-5.1)
--- NOTE | 2023-05-05 07:00 | Discharge Summary ---
Discharge Summary Date of Service May 05, 2023 Admission HPI Per Admitting Provider The patient is a 57-year-old male with a past medical history including suicide attempt by multiple drug overdose, right shoulder impingement syndrome, history of lumbar spine sacral spine surgery, history of arthroscopic left shoulder surgery, cervical spine stenosis and radiculopathy, depression, globus sensation, swallowing difficulty and GERD. He presented to the emergency department stating that he had taken 15 of his 100 mg amitriptyline pills about 1 hour prior to arrival in a suicide attempt. He was initially conversant with the ED, however, he became agitated, and was intubated while in the ED. He remained intubated and sedated during my complete assessment, and his HPI and ROS are obtained by record review and discussion with emergency department s hugh. His case was discussed with ICU staff, and arranges were made for patient to be admitted to the ICU Principal Dx & Hospital Course #1 = Principal Diagnosis (1) Intentional overdose of tricyclic antidepressant: Acute intentional ingestion - ETOH negative, Tylenol Negative, and ASA negative - Tox + for Marijuana, patient endorses daily use to Behavioral Health liaison - Behavioral Health evaluated patient, for discharge to Psych today - IVF discontinued in favor of oral intake (2) Delirium: Acute Delirium with agitation - DDX: Acute alcohol withdraw vs. metabolic encephalopathy vs acute delirium - Symptoms resolved, has not required Ativan since start of day shift today, continue to monitor for evidence of withdrawal - Appreciate Psych input as above (3) Suicide attempt by multiple drug overdose: As above (4) GERD (gastroesophageal reflux disease): Continue PPI (5) Depression: - History of suicide gestures/attempt, most recent 3 months ago - Firearms have been removed from the house - Hold Amitriptyline, medications as per Psych discretion with inpatient Psych admission on discharge Plan Continued monitoring on telemetry floor this evening, and anticipate discharge to Psych tomorrow if clinically stable Updated Medication List Medication Instructions Recorded Confirmed Type meloxicam 15 mg tablet 15 mg PO QAM 08/07/22 05/01/23 History ipratropium bromide 21 mcg (0.03 2 spray intranasal QAM #90 mL 09/21/22 05/01/23 Rx %) nasal spray pantoprazole 40 mg tablet,delayed 40 mg PO DAILY #90 tabs 04/04/23 05/01/23 Rx release amitriptyline 100 mg tablet 100 mg PO DAILY #90 tabs 04/16/23 05/01/23 Rx Hospital Stay Data Consultations 05/01/23 23:04 ED Decision to Admit Stat 05/02/23 01:11 Consult Buggy Runner Routine 05/02/23 16:32 Consult Psychiatry Routine Coding Diagnoses Intentional overdose of tricyclic antidepressant T43.012A Delirium R41.0 Suicide attempt by multiple drug overdose T50.912A GERD (gastroesophageal reflux disease) K21.9 Depression F32.A
[2023-05-05] MEDS: MELOXICAM 7.5 MG TAB PO SCH (10:02)
[2023-05-05] MEDS: PANTOprazole 40 MG TAB PO SCH ×2 (10:02→21:00)
[2023-05-05] MEDS: IPRATROPIUM BROMIDE NASAL SPRAY 0.06% 15ML NAE SCH (10:02)
[2023-05-05] MEDS: FOLIC ACID 1 MG TAB PO SCH (10:02)
[2023-05-05] MEDS: THIAMINE HCL 100 MG TAB PO SCH (10:02)
--- NOTE | 2023-05-05 11:04 | Hospitalist Progress Note ---
Date of Service May 05, 2023 Assessment & Plan (1) Intentional overdose of tricyclic antidepressant: Plan: Acute intentional ingestion - ETOH negative, Tylenol Negative, and ASA negative - Tox + for Marijuana, patient endorses daily use to Behavioral Health liaison - IVF discontinued in favor of oral intake, patient tolerating well - Montoya removed and voiding without difficulty - Medically stable for discharge to Psych facility when placement arranged by Behavioral Health team (2) Delirium: Plan: Acute Delirium with agitation - DDX: Acute alcohol withdraw vs. metabolic encephalopathy vs acute delirium - Symptoms resolved, has not required Ativan since 05/03 overnight (3) Suicide attempt by multiple drug overdose: Plan: As above (4) GERD (gastroesophageal reflux disease): Plan: Continue PPI (5) Depression: Plan: - History of suicide gestures/attempt, most recent 3 months ago - Firearms have been removed from the house - Hold Amitriptyline, medications as per Psych discretion with inpatient Psych admission on discharge Plan Downgraded to Med/Surg floor with 1:1, awaiting acceptance for inpatient Psych Admission and Anticipated Discharge Date Admission Date: May 01, 2023 Subjective No overnight events. Denies chest pain, SOB, nausea. Tolerating oral intake, and voiding without difficulty after Montoya removed. Review of Systems Review of Systems: All systems reviewed & are unremarkable except as noted in Subjective Physical Exam Constitutional: WD/WN, vitals as above Respiratory: normal respiratory effort, lungs clear to auscultation Cardiovascular: RRR, no murmur, no edema Gastrointestinal (Abdomen): normal bowel sounds, soft, nontender, no hepatosplenomegaly Skin: no rashes, warm and dry Psychiatric: alert and oriented x3, euthymic affect Results & Data Results & Data Vital Signs (Past 12 Hours) Vital Signs Temp Pulse Pulse Resp BP Pulse Ox O2 Del Method 05/05/23 08:00 88 05/05/23 02:28 36.6 C 94 H 20 146/88 H 95 Room Air 05/04/23 23:31 98 H PG Care Time/CCT Total # of Minutes Spent Total Time Spent with Patient: Total time spent is greater than 50% in coordination of care (as documented) at patient's floor/unit and/or counseling patient: Coding Level of Care Code 93367 SUB INP/OBS CARE 1/25MIN Diagnoses Intentional overdose of tricyclic antidepressant T43.012A Delirium R41.0 Suicide attempt by multiple drug overdose T50.912A GERD (gastroesophageal reflux disease) K21.9 Depression F32.A
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
[2023-05-05] MEDS: MELATONIN 3 MG TAB PO PRN (20:59)
[2023-05-06] MEDS: ENOXAPARIN INJ 40 MG/0.4 ML SYR SQ SCH (06:29)
--- NOTE | 2023-05-06 07:46 | Hospitalist Progress Note ---
Date of Service May 06, 2023 Assessment & Plan (1) Intentional overdose of tricyclic antidepressant: Plan: Acute intentional ingestion of amitriptyline. ETOH negative, Tylenol Negative, and ASA negative. Tox + for Marijuana, patient endorsed daily use to Behavioral Health liaison. Originally had Montoya and was NPO, Montoya since removed and tolerating PO intake without issue. Medically stable for discharge to Psych facility when placement arranged by Behavioral Health team. (2) Depression: Plan: - History of suicide gestures/attempt, most recent 3 months ago. Firearms have been removed from the house. Medications as per Psych discretion with inpatient Psych admission on discharge. (3) Delirium: Plan: Acute delirium with agitation has resolved. Was likely secondary to amitriptyline ingestion, vs. alcohol withdrawal. No Ativan per [facility] protocol since 05/03. (4) Suicide attempt by multiple drug overdose: Plan: As above (5) GERD (gastroesophageal reflux disease): Plan: Continue PPI Plan Med/Surg floor with 1:1, awaiting acceptance for inpatient Psych Admission and Anticipated Discharge Date Admission Date: May 01, 2023 Subjective No overnight events. Denies complaints. Looking forward to getting to psych f acility. Review of Systems Review of Systems: All systems reviewed & are unremarkable except as noted in Subjective Physical Exam Constitutional: WD/WN, vitals as above Skin: no rashes, warm and dry Psychiatric: alert and oriented x3, euthymic affect Results & Data Results & Data Vital Signs (Past 12 Hours) Vital Signs Temp Pulse Resp BP Pulse Ox O2 Del Method 05/05/23 23:45 36.4 C L 103 H 18 130/83 96 Room Air PG Care Time/CCT Total # of Minutes Spent Total Time Spent with Patient: Total time spent is greater than 50% in coordination of care (as documented) at patient's floor/unit and/or counseling patient: Coding Level of Care Code 55374 SUB INP/OBS CARE 25MIN Diagnoses Intentional overdose of tricyclic antidepressant T43.012A Depression F32.A Delirium R41.0 Suicide attempt by multiple drug overdose T50.912A GERD (gastroesophageal reflux disease) K21.9
--- NOTE | 2023-05-06 07:49 | Electrocardiogram Report ---
Test Reason : Blood Pressure : / mmHG Vent. Rate : 098 BPM Atrial Rate : 098 BPM P-R Int : 172 ms QRS Dur : 090 ms QT Int : 364 ms P-R-T Axes : 026 016 022 degrees QTc Int : 464 ms Normal sinus rhythm Incomplete right bundle branch block Prolonged QT When compared with ECG of 02-MAY-2023 12:43, QRS duration has decreased Incomplete right bundle branch block now present Confirmed by Maximo Velazquez ([id number]) on 05/06/2023 7:48:33 AM Referred By: REFERRED SELF Confirmed By:Maximo Velazquez
[2023-05-06] MEDS: MELOXICAM 7.5 MG TAB PO SCH (08:21)
[2023-05-06] MEDS: IPRATROPIUM BROMIDE NASAL SPRAY 0.06% 15ML NAE SCH (08:21)
[2023-05-06] MEDS: THIAMINE HCL 100 MG TAB PO SCH (08:21)
[2023-05-06] MEDS: FOLIC ACID 1 MG TAB PO SCH (08:21)
[2023-05-06] MEDS: PANTOprazole 40 MG TAB PO SCH ×2 (08:21→20:47)
[2023-05-06] MEDS: MELATONIN 3 MG TAB PO PRN (20:47)
[2023-05-07] MEDS: ENOXAPARIN INJ 40 MG/0.4 ML SYR SQ SCH (06:35)
[2023-05-07] MEDS: IPRATROPIUM BROMIDE NASAL SPRAY 0.06% 15ML NAE SCH ×2 (09:46→09:49)
[2023-05-07] MEDS: THIAMINE HCL 100 MG TAB PO SCH (09:47)
[2023-05-07] MEDS: MELOXICAM 7.5 MG TAB PO SCH (09:47)
[2023-05-07] MEDS: PANTOprazole 40 MG TAB PO SCH ×2 (09:47→20:31)
[2023-05-07] MEDS: FOLIC ACID 1 MG TAB PO SCH (09:47)
--- NOTE | 2023-05-07 16:37 | Hospitalist Progress Note ---
Date of Service May 07, 2023 Assessment & Plan (1) Intentional overdose of tricyclic antidepressant: Plan: Acute intentional ingestion of amitriptyline. ETOH negative, Tylenol Negative, and ASA negative. Tox + for Marijuana, patient endorsed daily use to Behavioral Health liaison. Originally had Montoya and was NPO. Montoya since removed and tolerating PO intake without issue. Medically stable for discharge to Psych facility when placement arranged by Behavioral Health team. (2) Depression: Plan: History of suicide gestures/attempt, most recent 3 months ago. Firearms have been removed from the house. Medications as per Psych discretion with inpatient Psych admission on discharge. (3) Delirium: Plan: Acute delirium with agitation has resolved. Was likely secondary to amitriptyline ingestion. (4) Suicide attempt by multiple drug overdose: Plan: Currently with one-on-one supervision. Appreciate psychiatry consultation and recommendations. Will discharge to inpatient psychiatry facility when arrangements are finalized (5) GERD (gastroesophageal reflux disease): Plan: Stable. Continue PPI Plan Med/Surg floor with 1:1, awaiting acceptance for inpatient Psych Admission and Anticipated Discharge Date Admission Date: May 01, 2023 Subjective Alert. No acute distress. He is medically stable for discharge to inpatient psych. Review of Systems Review of Systems: Constitutional-no fever or chills ENT-no blurred vision, no double vision, no epistaxis, no sore throat Respiratory-no cough, no wheezing, no shortness of breath Cardiac-no palpitations, no chest pain, no syncope GI-no nausea, vomiting, diarrhea, melena, hematochezia -no urinary retention, no urinary incontinence, no dysuria, no hematuria Musculoskeletal-no joint pain, no muscle tenderness Skin-no bruising, no rashes, no pruritus Neuro-no isolated weakness, no paresthesia, no weakness Psych-he is not voicing any suicidal ideation at this time Physical Exam Physical Exam: General-alert and oriented x3, no fevers, no chills HEENT-head atraumatic and normocephalic, pupils equal and reactive to light, extraocular muscles intact Neck-no lymphadenopathy or thyromegaly, trachea midline Chest-clear to auscultation percussion. No rales wheezing or rhonchi Cardiac-regular rate and rhythm, normal S1 and S2 Abdomen-normal bowel sounds, nontender, no hepatosplenomegaly Extremities-no cyanosis, clubbing, or edema Neuro-cranial nerves II through XII intact, motor and sensory function within normal limits, strength symmetrical , no focal deficits Psych-flat affect Results & Data Results & Data Vital Signs (Past 12 Hours) Vital Signs Temp Pulse Pulse Resp BP BP Pulse Ox 05/07/23 15:46 37.3 C 93 H 16 127/89 96 05/07/23 09:45 05/07/23 09:53 36.5 C 94 H 16 129/89 97 O2 Del Method 05/07/23 15:46 Room Air 05/07/23 09:45 Room Air 05/07/23 09:53 Room Air Laboratory Results 05/04/23 06:52 05/05/23 06:10 PG Care Time/CCT Total # of Minutes Spent Total Time Spent with Patient: Total time spent is greater than 50% in coordination of care (as documented) at patient's floor/unit and/or counseling patient: Coding Level of Care Code 07062 SUB INP/OBS CARE 3/50MIN Diagnoses Intentional overdose of tricyclic antidepressant T43.012A Depression F32.A Delirium R41.0 Suicide attempt by multiple drug overdose T50.912A GERD (gastroesophageal reflux disease) K21.9
[2023-05-07] MEDS: MELATONIN 3 MG TAB PO PRN (20:31)
[2023-05-08] MEDS: ENOXAPARIN INJ 40 MG/0.4 ML SYR SQ SCH (06:03)
[2023-05-08] MEDS: FOLIC ACID 1 MG TAB PO SCH (08:13)
[2023-05-08] MEDS: IPRATROPIUM BROMIDE NASAL SPRAY 0.06% 15ML NAE SCH (08:13)
[2023-05-08] MEDS: PANTOprazole 40 MG TAB PO SCH ×2 (08:14→19:41)
[2023-05-08] MEDS: MELOXICAM 7.5 MG TAB PO SCH (08:14)
[2023-05-08] MEDS: THIAMINE HCL 100 MG TAB PO SCH (08:14)
[2023-05-08 09:52] LABS: Basophils # (auto) 0.03 K/uL (0-0.2); Basophils % (auto) 0.3 %; Eosinophils # (auto) 0.08 K/uL (0-0.50); Eosinophils % (auto) 0.9 %; Hematocrit (blood only) 40.5 % (42.0-52.0); Hemoglobin 13.9 g/dl (14.0-18.0); Immature Granulocytes # (auto) 0.07 K/uL (0.01-0.20); Immature Granulocytes % (auto) 0.8 %; Lymphocytes # (auto) 1.35 K/uL (1.2-3.4); Lymphocytes % (auto) 15.6 %; Mean Corpuscular Hemoglobin 29.8 pg (25.0-34.0); Mean Corpuscular Hgb Conc 34.3 g/dL (32.0-36.0); Mean Corpuscular Volume 86.9 fL (80.0-100.0); Mean Platelet Volume 8.8 fL (9.4-12.4); Monocytes # (auto) 0.83 K/uL (0.11-0.59); Monocytes % (auto) 9.6 %; Neutrophils # (auto) 6.27 K/uL (1.40-6.50); Neutrophils % (auto) 72.8 %; Platelet Count 273 K/uL (130-400); RDW Coefficient of Variation 13.4 % (11.5-14.5); RDW Standard Deviation 42.8 fL (36.4-46.3); Red Blood Count 4.66 M/uL (4.70-6.10); White Blood Count 8.63 K/ul (4.8-10.8)
[2023-05-08 10:03] LABS: Calcium 9.6 mg/dl (8.6-10.3); Creatinine Clr Calc Pharmacy 78.4 ml/min; Est GFR (African American) 89.2 ml/min; Potassium 3.7 mmol/L (3.5-5.1)
--- NOTE | 2023-05-08 15:15 | Hospitalist Progress Note ---
Date of Service May 08, 2023 Assessment & Plan (1) Intentional overdose of tricyclic antidepressant: Plan: Acute intentional ingestion of amitriptyline. ETOH negative, Tylenol Negative, and ASA negative. Tox + for Marijuana, patient endorsed daily use to Behavioral Health liaison. Originally had Montoya and was NPO. Montoya since removed and tolerating PO intake without issue. Medically stable for discharge to Psych facility when placement arranged by Behavioral Health team. (2) Depression: Plan: History of suicide gestures/attempt, most recent 3 months ago. Firearms have been removed from the house. Medications as per Psych discretion with inpatient Psych admission on discharge. (3) Delirium: Plan: Acute delirium with agitation has resolved. Was likely secondary to amitriptyline ingestion. (4) Suicide attempt by multiple drug overdose: Plan: Currently with one-on-one supervision. Appreciate psychiatry consultation and recommendations. Will discharge to inpatient psychiatry facility when arrangements are finalized (5) GERD (gastroesophageal reflux disease): Plan: Stable. Continue PPI Plan Med/Surg floor with 1:1, awaiting acceptance for inpatient Psych Admission and Anticipated Discharge Date Admission Date: May 01, 2023 Subjective Alert and oriented. No distress. Stable overall. Awaiting eventual discharge to inpatient psych facility when arrangements are finalized Review of Systems Review of Systems: Constitutional-no fever or chills ENT-no blurred vision, no double vision, no epistaxis, no sore throat Respiratory-no cough, no wheezing, no shortness of breath Cardiac-no palpitations, no chest pain, no syncope GI-no nausea, vomiting, diarrhea, melena, hematochezia -no urinary retention, no urinary incontinence, no dysuria, no hematuria Musculoskeletal-no joint pain, no muscle tenderness Skin-no bruising, no rashes, no pruritus Neuro-no isolated weakness, no paresthesia, no weakness Psych-he is not voicing any suicidal ideation at this time Physical Exam Physical Exam: General-alert and oriented x3, no fevers, no chills HEENT-head atraumatic and normocephalic, pupils equal and reactive to light, extraocular muscles intact Neck-no lymphadenopathy or thyromegaly, trachea midline Chest-clear to auscultation percussion. No rales wheezing or rhonchi Cardiac-regular rate and rhythm, normal S1 and S2 Abdomen-normal bowel sounds, nontender, no hepatosplenomegaly Extremities-no cyanosis, clubbing, or edema Neuro-cranial nerves II through XII intact, motor and sensory function within normal limits, strength symmetrical , no focal deficits Psych-flat affect Results & Data Results & Data Vital Signs (Past 12 Hours) Vital Signs Temp Pulse Resp BP Pulse Ox O2 Del Method 05/08/23 08:03 36.8 C 95 H 20 131/88 97 Room Air Laboratory Results 05/08/23 09:09 05/08/23 09:09 PG Care Time/CCT Total # of Minutes Spent Total Time Spent with Patient: Total time spent is greater than 50% in coordination of care (as documented) at patient's floor/unit and/or counseling patient: Coding Level of Care Code 74177 SUB INP/OBS CARE 2/35MIN Diagnoses Intentional overdose of tricyclic antidepressant T43.012A Depression F32.A Delirium R41.0 Suicide attempt by multiple drug overdose T50.912A GERD (gastroesophageal reflux disease) K21.9
[2023-05-08] MEDS: MELATONIN 3 MG TAB PO PRN (19:41)
[2023-05-09] MEDS: ENOXAPARIN INJ 40 MG/0.4 ML SYR SQ SCH (06:19)
[2023-05-09] MEDS: FOLIC ACID 1 MG TAB PO SCH (08:37)
[2023-05-09] MEDS: THIAMINE HCL 100 MG TAB PO SCH (08:37)
[2023-05-09] MEDS: MELOXICAM 7.5 MG TAB PO SCH (08:37)
[2023-05-09] MEDS: PANTOprazole 40 MG TAB PO SCH (08:37)
[2023-05-09] MEDS: IPRATROPIUM BROMIDE NASAL SPRAY 0.06% 15ML NAE SCH (08:37)
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
--- NOTE | 2023-05-09 12:41 | Hospitalist Progress Note ---
Date of Service May 09, 2023 Assessment & Plan (1) Intentional overdose of tricyclic antidepressant: Plan: Acute intentional ingestion of amitriptyline. ETOH negative, Tylenol Negative, and ASA negative. Tox + for Marijuana, patient endorsed daily use to Behavioral Health liaison. Originally had Montoya and was NPO. Montoya since removed and tolerating PO intake without issue. Medically stable for discharge to Psych facility when placement arranged by Behavioral Health team. (2) Depression: Plan: History of suicide gestures/attempt, most recent 3 months ago. Firearms have been removed from the house. Medications as per Psych discretion with inpatient Psych admission on discharge. (3) Delirium: Plan: Acute delirium with agitation has resolved. Was likely secondary to amitriptyline ingestion. (4) Suicide attempt by multiple drug overdose: Plan: Currently with one-on-one supervision. Appreciate psychiatry consultation and recommendations. Will discharge to inpatient psychiatry facility when arrangements are finalized (5) GERD (gastroesophageal reflux disease): Plan: Stable. Continue PPI Plan Med/Surg floor with 1:1, awaiting acceptance for inpatient Psych Admission and Anticipated Discharge Date Admission Date: May 01, 2023 Subjective Alert and oriented. No distress. Pleasant. Awaiting final arrangements for transfer to inpatient psych Review of Systems Review of Systems: Constitutional-no fever or chills ENT-no blurred vision, no double vision, no epistaxis, no sore throat Respiratory-no cough, no wheezing, no shortness of breath Cardiac-no palpitations, no chest pain, no syncope GI-no nausea, vomiting, diarrhea, melena, hematochezia -no urinary retention, no urinary incontinence, no dysuria, no hematuria Musculoskeletal-no joint pain, no muscle tenderness Skin-no bruising, no rashes, no pruritus Neuro-no isolated weakness, no paresthesia, no weakness Psych-he is not voicing any suicidal ideation at this time Physical Exam Physical Exam: General-alert and oriented x3, no fevers, no chills HEENT-head atraumatic and normocephalic, pupils equal and reactive to light, extraocular muscles intact Neck-no lymphadenopathy or thyromegaly, trachea midline Chest-clear to auscultation percussion. No rales wheezing or rhonchi Cardiac-regular rate and rhythm, normal S1 and S2 Abdomen-normal bowel sounds, nontender, no hepatosplenomegaly Extremities-no cyanosis, clubbing, or edema Neuro-cranial nerves II through XII intact, motor and sensory function within normal limits, strength symmetrical , no focal deficits Psych-flat affect Results & Data Results & Data Vital Signs (Past 12 Hours) Vital Signs Temp Pulse Resp BP Pulse Ox O2 Del Method 05/09/23 07:45 36.8 C 81 17 122/87 99 Room Air Laboratory Results 05/08/23 09:09 05/08/23 09:09 PG Care Time/CCT Total # of Minutes Spent Total Time Spent with Patient: Total time spent is greater than 50% in coordination of care (as documented) at patient's floor/unit and/or counseling patient: Coding Level of Care Code 25686 SUB INP/OBS CARE 2/35MIN Diagnoses Intentional overdose of tricyclic antidepressant T43.012A Depression F32.A Delirium R41.0 Suicide attempt by multiple drug overdose T50.912A GERD (gastroesophageal reflux disease) K21.9
--- NOTE | 2023-05-09 16:37 | Discharge Summary ---
Date of Service May 09, 2023 Principal Diagnosis Suicide attempt, intentional tricyclic overdose Discharge Exam General-alert and oriented x3, no fevers, no chills HEENT-head atraumatic and normocephalic, pupils equal and reactive to light, extraocular muscles intact Neck-no lymphadenopathy or thyromegaly, trachea midline Chest-clear to auscultation percussion. No rales wheezing or rhonchi Cardiac-regular rate and rhythm, normal S1 and S2 Abdomen-normal bowel sounds, nontender, no hepatosplenomegaly Extremities-no cyanosis, clubbing, or edema Neuro-cranial nerves II through XII intact, motor and sensory function within normal limits, strength symmetrical , no focal deficits Psych-flat affect Discharge Data Allergies Allergy/AdvReac Type Severity Reaction Status Date / Time No Known Allergies Allergy Verified 02/13/23 14:21 Consultations 05/01/23 23:04 ED Decision to Admit Stat 05/02/23 01:11 Consult Frame Polisher Routine 05/02/23 16:32 Consult Psychiatry Routine Hospital Course (1) Intentional overdose of tricyclic antidepressant: Acute intentional ingestion of amitriptyline. ETOH negative, Tylenol Negative, and ASA negative. Tox + for Marijuana, patient endorsed daily use to Behavioral Health liaison. Originally had Montoya and was NPO. Montoya since removed and tolerating PO intake without issue. Medically stable for discharge to Psych facility when placement arranged by Behavioral Health team. (2) Depression: History of suicide gestures/attempt, most recent 3 months ago. Firearms have been removed from the house. Medications as per Psych discretion with inpatient Psych admission on discharge. (3) Delirium: Acute delirium with agitation has resolved. Was likely secondary to amitriptyline ingestion. (4) Suicide attempt by multiple drug overdose: Currently with one-on-one supervision. Appreciate psychiatry consultation and recommendations. Will discharge to inpatient psychiatry facility when arrangements are finalized (5) GERD (gastroesophageal reflux disease): Stable. Continue PPI Plan Med/Surg floor with 1:1, awaiting acceptance for inpatient Psych Total Time Total Time Spent Total Time Spent (In Minutes): 40 minutes Discharge Plan Discharge Items Patient Disposition: Transfer Behavioral Health Fac Reason For Visit: AMITRIPTILLINE OVERDOSE, INTUBATED IN ER Discharge Diagnosis: amitriptyline overdose Activity: Per Instructions section Non-emergency contact: Primary Care Provider Call non-emergency contact if: you have any medication questions and your symptoms worsen Follow-up/Referrals: Kun Perla DO [Primary Care Provider] - Diet: Regular Addtl Attending Provider Instructions: You were admitted to the hospital for evaluation and management of an amitriptyline overdose. With fluids and heart monitoring, your symptoms impro kayleigh. Pending Studies at Discharge: No Stand-Alone Forms: My [facility] [employer], Smoking Cessation Medications and DC Order Prescriptions: Continued ipratropium bromide 21 mcg (0.03 %) spray,non-aerosol 2 spray intranasal QAM Qty: 90 2RF Rx Instructions: administer into each nostril pantoprazole 40 mg tablet,delayed release (DR/EC) 40 mg PO DAILY Qty: 90 0RF Rx Instructions: 1 tab 30-min prior to 1st meal. meloxicam 15 mg Tablet 15 mg PO QAM Rx Instructions: filled 04/05/23 for 30 days Discontinued amitriptyline 100 mg tablet 100 mg PO DAILY Qty: 90 3RF Rx Instructions: filled 04/16/23 for 30 days Discharge Orders: Discharge Order (Routine); Ordered 05/09/23 Ordered By: Hernandez Delcid Admission Data Admit Date/Time: 05/01/23 23:42 Attending Provider: Hernandez Delcid Admit Provider: Srinivasan Rodriges Primary Care Provider: Kun Perla Other Providers: Srinivasan Rodriges ; Denis Mora ; Catia De Jesus ; Sharon Mendoza ; Bruce Hopkins Other Interventions: Discharge Summary Assessment (RN) Last Done: 05/09/23 16:00 Coding Level of Care Code 75917 INP/OBS DISCH >30 MIN Diagnoses Intentional overdose of tricyclic antidepressant T43.012A Depression F32.A Delirium R41.0 Suicide attempt by multiple drug overdose T50.912A GERD (gastroesophageal reflux disease) K21.9
== END 2023-05-09 17:34 | DRG 917 ==
LOC: ED 21:47 → SUATTDRO 23:42 → 1E 23:42 → 2E 05-03 22:03 → 3E 05-05 13:28